=== PATIENT | male | born 1960 | race Caucasian/White ===

== ENCOUNTER → 2016-08-08 | Outpatient (CLI) | payer MEDICARE, OTHER ==
[~2016-08-08] MED LIST: /LORA10TA PO; ASPI325T5 PO; CARV25TA PO; CLOP75TA2 PO; COZAAR OR; DIGO0.259 PO; LASI40TA PO; LISI5TAB PO; MAGN500T6 PO; MULTCAP PO; NITR4TASL SL; OMEP20CA3 PO; SIMV40TA2 PO; SPIR25TA2 PO
--- NOTE | 2016-08-08 15:05 | REP ---
CHEST X-RAY: Two views. HISTORY: Coronary artery disease, cardiomyopathy, cough and fever. Comparison study August 24, 2013. FINDINGS: A unipolar pacemaker is seen in the right heart via the left side. Heart is not felt to be enlarged. The lungs are exposed at a relatively low level of inspiration. There is some linear fibrosis in the right base unchanged from the comparison study. Interstitial markings are slightly prominent diffusely at the bases. No acute infiltrate is seen. No pleural effusion noted. IMPRESSION: Prominent bibasilar interstitial markings. Linear fibrosis right base. Pacemaker in place. Signed by Kj Alejandra MD 08/08/2016 05:39 P
[2016-08-08 16:32] LABS: ANION GAP 11 MEQ/L (8-16); BLOOD UREA NITROGEN 9 MG/DL (7-18); CALCIUM LEVEL 9.5 MG/DL (8.5-10.1); CARBON DIOXIDE LEVEL 30 MEQ/L (21-32); CHLORIDE LEVEL 99 MEQ/L (98-107); GLOMERULAR FILTRATION RATE > 60.0 (>56); GLUCOSE, FASTING 157 MG/DL (70-105); POTASSIUM SERUM 4.1 MEQ/L (3.5-5.1); SODIUM LEVEL 140 MEQ/L (136-145)
[2016-08-08 16:47] LABS: MEAN CORPUSCULAR HEMOGLOBIN 30.8 pg (27.0-33.0); MEAN CORPUSCULAR HGB CONC 32.9 g/dl (32.0-36.5); MEAN CORPUSCULAR VOLUME 93.7 fl (80.0-96.0); RED CELL DISTRIBUTION WIDTH 12.4 % (11.5-14.5); WHITE BLOOD COUNT 6.9 K/mm3 (4.0-10.0)
== END ==
LOC: M SMT 10:16
PROVIDERS: ATTEND Internal Medicine Cardiovascular Disease
DX: R05 Cough (principal); R50.9 Fever, unspecified; I25.10 Atherosclerotic heart disease of native coronary artery without angina pectoris; Z95.0 Presence of cardiac pacemaker; I42.9 Cardiomyopathy, unspecified

== ENCOUNTER → 2016-10-08 | Outpatient (REF) | payer MEDICARE ==
[2016-10-08 11:46] LABS: ALBUMIN 3.9 GM/DL (3.2-5.2); ALBUMIN/GLOBULIN RATIO 1.08 (1.00-1.93); ALKALINE PHOSPHATASE 68 U/L (45-117); ALT/SGPT 34 U/L (12-78); ANION GAP 9 MEQ/L (8-16); AST/SGOT 20 U/L (15-37); BILIRUBIN,TOTAL 0.4 MG/DL (0.2-1.0); BLOOD UREA NITROGEN 15 MG/DL (7-18); CALCIUM LEVEL 9.3 MG/DL (8.5-10.1); CARBON DIOXIDE LEVEL 29 MEQ/L (21-32); CHLORIDE LEVEL 103 MEQ/L (98-107); CHOLESTEROL LEVEL 148 MG/DL (<200); CREATININE FOR GFR 1.07 MG/DL (0.70-1.30); GLOMERULAR FILTRATION RATE > 60.0 (>56); GLUCOSE, FASTING 160 MG/DL (70-105); POTASSIUM SERUM 3.9 MEQ/L (3.5-5.1); SODIUM LEVEL 141 MEQ/L (136-145); TOTAL PROTEIN 7.5 GM/DL (6.4-8.2); TRIGLYCERIDES LEVEL 258 MG/DL (<150)
== END ==
LOC: M SFHCPLAZ 08:46
PROVIDERS: ATTEND Internal Medicine
DX: R73.01 Impaired fasting glucose (principal); E78.5 Hyperlipidemia, unspecified

== ENCOUNTER → 2017-04-07 | Outpatient (REF) | payer MEDICARE ==
[2017-04-07 13:22] LABS: ALBUMIN 3.9 GM/DL (3.2-5.2); ALBUMIN/GLOBULIN RATIO 1.11 (1.00-1.93); ALKALINE PHOSPHATASE 71 U/L (45-117); ALT/SGPT 35 U/L (12-78); ANION GAP 9 MEQ/L (8-16); AST/SGOT 20 U/L (7-37); BILIRUBIN,TOTAL 0.3 MG/DL (0.2-1.0); BLOOD UREA NITROGEN 12 MG/DL (7-18); CARBON DIOXIDE LEVEL 27 MEQ/L (21-32); CHLORIDE LEVEL 103 MEQ/L (98-107); CHOLESTEROL LEVEL 148 MG/DL (<200); CREATININE FOR GFR 1.16 MG/DL (0.70-1.30); GLOMERULAR FILTRATION RATE > 60.0 (>56); GLUCOSE, FASTING 210 MG/DL (70-105); POTASSIUM SERUM 4.1 MEQ/L (3.5-5.1); SODIUM LEVEL 139 MEQ/L (136-145); TOTAL PROTEIN 7.4 GM/DL (6.4-8.2); TRIGLYCERIDES LEVEL 267 MG/DL (<150)
== END ==
LOC: M SFHCPLAZ 08:46
PROVIDERS: ATTEND Internal Medicine
DX: I25.5 Ischemic cardiomyopathy (principal); R73.01 Impaired fasting glucose; E78.5 Hyperlipidemia, unspecified

== ENCOUNTER → 2017-09-09 | Outpatient (REF) | payer MEDICARE ==
[2017-09-09 11:40] LABS: HEMATOCRIT 41.9 % (42.0-52.0); HEMOGLOBIN 13.9 g/dl (13.5-17.5); MEAN CORPUSCULAR HEMOGLOBIN 30.8 pg (27.0-33.0); MEAN CORPUSCULAR HGB CONC 33.2 g/dl (32.0-36.5); MEAN CORPUSCULAR VOLUME 92.7 fl (80.0-96.0); PLATELET COUNT, AUTOMATED 240 10^3/uL (150-450); RED BLOOD COUNT 4.52 10^6/uL (4.30-6.10); RED CELL DISTRIBUTION WIDTH 12.5 % (11.5-14.5); WHITE BLOOD COUNT 7.3 10^3/uL (4.0-10.0)
[2017-09-09 12:26] LABS: ALBUMIN 3.9 GM/DL (3.2-5.2); ALBUMIN/GLOBULIN RATIO 1.08 (1.00-1.93); ALKALINE PHOSPHATASE 50 U/L (45-117); ALT/SGPT 25 U/L (12-78); ANION GAP 10 MEQ/L (8-16); AST/SGOT 18 U/L (7-37); BILIRUBIN,TOTAL 0.4 MG/DL (0.2-1.0); BLOOD UREA NITROGEN 15 MG/DL (7-18); CALCIUM LEVEL 9.2 MG/DL (8.5-10.1); CARBON DIOXIDE LEVEL 25 MEQ/L (21-32); CHLORIDE LEVEL 105 MEQ/L (98-107); CHOLESTEROL LEVEL 148 MG/DL (<200); CHOLESTEROL RISK RATIO 4.228 (<5); CREATININE FOR GFR 1.07 MG/DL (0.70-1.30); GLOMERULAR FILTRATION RATE > 60.0 (>56); GLUCOSE, FASTING 154 MG/DL (70-100); HDL CHOLESTEROL 35 MG/DL (>40); LDL CHOLESTEROL 78.4 MG/DL (<100); NON-HDL-C 113 MG/DL; SODIUM LEVEL 140 MEQ/L (136-145); TOTAL PROTEIN 7.5 GM/DL (6.4-8.2); TRIGLYCERIDES LEVEL 173 MG/DL (<150)
[2017-09-09 13:11] LABS: ESTIMATED AVERAGE GLUCOSE 157 MG/DL (60-110); HEMOGLOBIN A1c 7.1 %
== END ==
LOC: M SFHCPLAZ 08:42
DX: G47.33 Obstructive sleep apnea (adult) (pediatric) (principal); E11.9 Type 2 diabetes mellitus without complications; E78.5 Hyperlipidemia, unspecified
CPT/HCPCS: 80053

== ENCOUNTER 2018-03-02 15:39 | Emergency (ER) | payer MEDICARE ==
[2018-03-02 17:16] LABS: BASO # 0.1 10^3/uL (0.0-0.2); BASO % 0.6 % (0.0-1.0); EOS # 0.2 10^3/uL (0.0-0.50); EOS % 2.6 % (0.0-3.0); HEMATOCRIT 41.6 % (42.0-52.0); HEMOGLOBIN 13.9 g/dl (13.5-17.5); IMMATURE GRANULOCYTE % 0.4 % (0-3.0); LYMPH # 3.4 10^3/uL (1.5-4.5); LYMPH % 37.7 % (24.0-44.0); MEAN CORPUSCULAR HEMOGLOBIN 31.2 pg (27.0-33.0); MEAN CORPUSCULAR HGB CONC 33.4 g/dl (32.0-36.5); MEAN CORPUSCULAR VOLUME 93.5 fl (80.0-96.0); NEUTROPHILS # 4.3 10^3/uL (1.8-7.7); NEUTROPHILS % 47.7 % (36.0-66.0); PLATELET COUNT, AUTOMATED 240 10^3/uL (150-450); RED BLOOD COUNT 4.45 10^6/uL (4.30-6.10); RED CELL DISTRIBUTION WIDTH 12.4 % (11.5-14.5); WHITE BLOOD COUNT 9.1 10^3/uL (4.0-10.0)
[2018-03-02 17:52] LABS: ALBUMIN 3.8 GM/DL (3.2-5.2); ALBUMIN/GLOBULIN RATIO 0.95 (1.00-1.93); ALKALINE PHOSPHATASE 44 U/L (45-117); ALT/SGPT 27 U/L (12-78); ANION GAP 8 MEQ/L (8-16); AST/SGOT 16 U/L (7-37); BILIRUBIN,DIRECT 0.1 MG/DL (0.0-0.2); BILIRUBIN,TOTAL 0.4 MG/DL (0.2-1.0); BLOOD UREA NITROGEN 11 MG/DL (7-18); CALCIUM LEVEL 8.3 MG/DL (8.5-10.1); CARBON DIOXIDE LEVEL 29 MEQ/L (21-32); CHLORIDE LEVEL 103 MEQ/L (98-107); CK-MB VALUE MASS < 1.0 NG/ML (<3.6); CPK CREATINE PHOSPHOKINASE 94 U/L (39-308); CREATININE FOR GFR 1.11 MG/DL (0.70-1.30); GLOMERULAR FILTRATION RATE > 60.0 (>56); GLUCOSE, FASTING 82 MG/DL (70-100); LIPASE 104 U/L (73-393); MB/CK RELATIVE INDEX 1.06 (< OR =4); POTASSIUM SERUM 3.6 MEQ/L (3.5-5.1); SODIUM LEVEL 140 MEQ/L (136-145); TOTAL PROTEIN 7.8 GM/DL (6.4-8.2); TROPONIN I < 0.02 NG/ML (< 0.10)
[2018-03-02] MEDS: ASPIRIN 81 MG CHEW TABLET PO (18:09)
[2018-03-02] MEDS: GI COCKTAIL 50ML BTL(HYOSCYAMINE/MAALOX/LIDOCAINE VISCOUS)(1:3:1) PO (18:09)
[2018-03-02 18:39] LABS: INR 1.08; PROTHROMBIN TIME 14.1 SECONDS (12.1-14.4)
[2018-03-02] MEDS: ONDANSETRON 4MG/2ML VIAL (J2405) IV (19:45)
[2018-03-02] MEDS: MORPHINE 4 MG/ML 1ML VIAL/SYRINGE (J2270) IV (20:00)
== END 2018-03-02 20:28 | disposition home or self-care (01) ==
LOC: M ED 15:39
DX: R07.89 Other chest pain (principal); R11.0 Nausea; E11.9 Type 2 diabetes mellitus without complications; I10 Essential (primary) hypertension; J44.9 Chronic obstructive pulmonary disease, unspecified; Z87.891 Personal history of nicotine dependence; Z88.0 Allergy status to penicillin; Z79.899 Other long term (current) drug therapy; Z79.02 Long term (current) use of antithrombotics/antiplatelets; Z79.82 Long term (current) use of aspirin
CPT/HCPCS: 71045

== ENCOUNTER → 2018-03-11 | Outpatient (REF) | payer MEDICARE ==
[2018-03-11 11:04] LABS: ALBUMIN/GLOBULIN RATIO 1.21 (1.00-1.93); ALKALINE PHOSPHATASE 48 U/L (45-117); ALT/SGPT 29 U/L (12-78); ANION GAP 9 MEQ/L (8-16); AST/SGOT 20 U/L (7-37); BILIRUBIN,TOTAL 0.4 MG/DL (0.2-1.0); BLOOD UREA NITROGEN 12 MG/DL (7-18); CALCIUM LEVEL 9.5 MG/DL (8.5-10.1); CARBON DIOXIDE LEVEL 25 MEQ/L (21-32); CHLORIDE LEVEL 107 MEQ/L (98-107); CHOLESTEROL LEVEL 127 MG/DL (<200); CHOLESTEROL RISK RATIO 3.527 (<5); CREATININE FOR GFR 1.07 MG/DL (0.70-1.30); GLOMERULAR FILTRATION RATE > 60.0 (>56); GLUCOSE, FASTING 166 MG/DL (70-100); HDL CHOLESTEROL 36 MG/DL (>40); LDL CHOLESTEROL 53 MG/DL (<100); MAGNESIUM LEVEL 2.2 MG/DL (1.8-2.4); NON-HDL-C 91 MG/DL; POTASSIUM SERUM 4.3 MEQ/L (3.5-5.1); SODIUM LEVEL 141 MEQ/L (136-145); TOTAL PROTEIN 7.3 GM/DL (6.4-8.2); TRIGLYCERIDES LEVEL 189 MG/DL (<150)
[2018-03-11 11:55] LABS: ESTIMATED AVERAGE GLUCOSE 154 MG/DL (60-110)
[2018-03-11 12:27] LABS: HEP C VIRUS AB SCREEN MEDICARE < 0.0 INDEX (<0.8)
== END ==
LOC: M SFHCPLAZ 08:13
DX: E11.9 Type 2 diabetes mellitus without complications (principal); E78.5 Hyperlipidemia, unspecified; I25.10 Atherosclerotic heart disease of native coronary artery without angina pectoris; Z11.59 Encounter for screening for other viral diseases
CPT/HCPCS: 83735

== ENCOUNTER → 2018-09-14 | Outpatient (REF) | payer MEDICARE ==
[~2018-09-14] MED LIST changes: -/LORA10TA PO; +ATOR40TA75 PO; +CORL1.7T PO; +ENTR1TAB7; +FENO160T10 PO; +GLIP5TAB8 PO; +LORA-385 PO
[2018-09-14 10:53] LABS: HEMATOCRIT 41.5 % (42.0-52.0); HEMOGLOBIN 13.7 g/dl (13.5-17.5); MEAN CORPUSCULAR HEMOGLOBIN 31.4 pg (27.0-33.0); PLATELET COUNT, AUTOMATED 222 10^3/uL (150-450); RED BLOOD COUNT 4.37 10^6/uL (4.30-6.10); WHITE BLOOD COUNT 6.9 10^3/uL (4.0-10.0)
[2018-09-14 11:25] LABS: ALBUMIN 3.7 GM/DL (3.2-5.2); ALT/SGPT 25 U/L (12-78); BILIRUBIN,TOTAL 0.3 MG/DL (0.2-1.0); BLOOD UREA NITROGEN 15 MG/DL (7-18); CALCIUM LEVEL 8.7 MG/DL (8.5-10.1); CARBON DIOXIDE LEVEL 28 MEQ/L (21-32); CHLORIDE LEVEL 106 MEQ/L (98-107); CREATININE FOR GFR 1.17 MG/DL (0.70-1.30); GLOMERULAR FILTRATION RATE > 60.0 (>56); GLUCOSE, FASTING 165 MG/DL (70-100); POTASSIUM SERUM 4.2 MEQ/L (3.5-5.1); SODIUM LEVEL 140 MEQ/L (136-145); TOTAL PROTEIN 6.8 GM/DL (6.4-8.2)
[2018-09-14 11:35] LABS: MALB URINE SIEMENS 7.4 MG/L; MAU/CREAT RATIO 3.7 MCG/MG (0.0-30.0)
[2018-09-14 12:51] LABS: HEMOGLOBIN A1c 7.7 %
== END ==
LOC: M SFHCPLAZ 08:16
PROVIDERS: ATTEND Internal Medicine
DX: Z86.010 Personal history of colon polyps (principal); E11.9 Type 2 diabetes mellitus without complications; I25.5 Ischemic cardiomyopathy

== ENCOUNTER → 2018-10-06 | Outpatient (CLI) | payer MEDICARE ==
--- NOTE | 2018-10-06 10:39 | REP ---
CT chest without contrast: History: Interstitial lung disease. Comparison chest x-ray March 02, 2018 and August 08, 2016. No comparison chest CT. CT findings: The there are mild linear pleuroparenchymal fibrotic changes involving the right middle lobe, lingula, and the left lower lobe at the bases bilaterally. There is no evidence of interstitial lung disease by CT. There is a pacemaker lead in the right heart via the left side. No pleural or pericardial effusion is appreciated. No hilar or mediastinal mass or adenopathy is seen. There is extensive left coronary artery and right coronary artery vascular calcification. There is mild to moderate diffuse fatty infiltration of the liver with areas of fat sparing near the gallbladder. No adrenal lesion is seen. A very small peripheral cyst is seen in the upper pole right kidney. No bony destructive lesion is appreciated. Impression: Pacemaker in place. No evidence of interstitial lung disease. Mild bibasilar pleuroparenchymal fibrosis is seen. No acute disease. Electronically Signed by Kj Alejandra MD 10/06/2018 05:18 P
== END ==
LOC: M RAD 08:52
PROVIDERS: ATTEND Internal Medicine
DX: R91.8 Other nonspecific abnormal finding of lung field (principal); Z95.0 Presence of cardiac pacemaker; Z87.09 Personal history of other diseases of the respiratory system

== ENCOUNTER → 2019-03-18 | Outpatient (REF) | payer MEDICARE ==
[2019-03-18 11:47] LABS: ALBUMIN 3.7 GM/DL (3.2-5.2); ALT/SGPT 24 U/L (12-78); BILIRUBIN,TOTAL 0.4 MG/DL (0.2-1.0); BLOOD UREA NITROGEN 14 MG/DL (7-18); CALCIUM LEVEL 8.9 MG/DL (8.5-10.1); CARBON DIOXIDE LEVEL 26 MEQ/L (21-32); CHLORIDE LEVEL 105 MEQ/L (98-107); CHOLESTEROL LEVEL 135 MG/DL (<200); CREATININE FOR GFR 0.99 MG/DL (0.70-1.30); GLOMERULAR FILTRATION RATE > 60.0 (>56); GLUCOSE, FASTING 154 MG/DL (70-100); HDL CHOLESTEROL 34 MG/DL (>40); LDL CHOLESTEROL 47 MG/DL (<100); MAGNESIUM LEVEL 1.9 MG/DL (1.8-2.4); NON-HDL-C 101 MG/DL; POTASSIUM SERUM 4.5 MEQ/L (3.5-5.1); SODIUM LEVEL 139 MEQ/L (136-145); TOTAL PROTEIN 7.1 GM/DL (6.4-8.2); TRIGLYCERIDES LEVEL 270 MG/DL (<150)
[2019-03-18 12:49] LABS: HEMOGLOBIN A1c 7.1 %
== END ==
LOC: M SFHCPLAZ 08:04
PROVIDERS: ATTEND Internal Medicine
DX: E11.9 Type 2 diabetes mellitus without complications (principal); E78.5 Hyperlipidemia, unspecified; I25.5 Ischemic cardiomyopathy

== ENCOUNTER → 2019-09-23 | Outpatient (REF) | payer MEDICARE ==
[2019-09-23 14:09] LABS: HEMATOCRIT 45.1 % (42.0-52.0); HEMOGLOBIN 14.5 g/dl (13.5-17.5); MEAN CORPUSCULAR HEMOGLOBIN 30.9 pg (27.0-33.0); MEAN CORPUSCULAR HGB CONC 32.2 g/dl (32.0-36.5); PLATELET COUNT, AUTOMATED 200 10^3/uL (150-450); WHITE BLOOD COUNT 6.2 10^3/uL (4.0-10.0)
[2019-09-23 14:12] LABS: ALBUMIN 3.7 GM/DL (3.2-5.2); ALT/SGPT 40 U/L (12-78); BILIRUBIN,TOTAL 0.4 MG/DL (0.2-1.0); BLOOD UREA NITROGEN 12 MG/DL (7-18); CALCIUM LEVEL 9.1 MG/DL (8.5-10.1); CARBON DIOXIDE LEVEL 27 MEQ/L (21-32); CHLORIDE LEVEL 106 MEQ/L (98-107); CHOLESTEROL LEVEL 155 MG/DL (<200); CHOLESTEROL RISK RATIO 4.696 (<5); GLOMERULAR FILTRATION RATE > 60.0 (>56); GLUCOSE, FASTING 233 MG/DL (70-100); HDL CHOLESTEROL 33 MG/DL (>40); LDL CHOLESTEROL 51 MG/DL (<100); NON-HDL-C 122 MG/DL; POTASSIUM SERUM 4.6 MEQ/L (3.5-5.1); SODIUM LEVEL 140 MEQ/L (136-145); TOTAL PROTEIN 7.3 GM/DL (6.4-8.2); TRIGLYCERIDES LEVEL 354 MG/DL (<150)
[2019-09-23 14:27] LABS: HEMOGLOBIN A1c 9.5 %
[2019-09-23 14:52] LABS: MALB URINE SIEMENS 18.8 MG/L; MAU/CREAT RATIO 6.5 MCG/MG (0.0-30.0)
== END ==
LOC: M SFHCPLAZ 10:13 → M SFHCADAM 10:14
PROVIDERS: ATTEND Internal Medicine
DX: G47.33 Obstructive sleep apnea (adult) (pediatric) (principal); I25.5 Ischemic cardiomyopathy; E11.9 Type 2 diabetes mellitus without complications; E78.5 Hyperlipidemia, unspecified; I25.10 Atherosclerotic heart disease of native coronary artery without angina pectoris

== ENCOUNTER → 2019-10-05 | Outpatient (CLI) | payer MEDICARE ==
--- NOTE | 2019-10-05 11:19 | REP ---
REASON FOR EXAM: History of asthma. COMPARISON: 10/06/2018 also without contrast. The lack of intravenous contrast decreases the sensitivity of the examination. The mediastinum and pulmonary maik are unchanged. No mass or adenopathy has developed. There is no significant change in the appearance of the imaged upper abdomen or imaged osseous structures. Diffuse low density is seen throughout the hepatic parenchyma. Evaluation of the lung bautista shows no new abnormal nodules, masses, or opacities. IMPRESSION: Stable CT examination of the chest. There is minimal bibasal subsegmental atelectatic change. There is diffuse fatty infiltration of the liver. Electronically Signed by Jayson Steel DO 10/05/2019 12:06 P
== END ==
LOC: M RAD 10:23
PROVIDERS: ATTEND Nurse Practitioner Family
DX: J45.20 Mild intermittent asthma, uncomplicated (principal); K76.0 Fatty (change of) liver, not elsewhere classified

== ENCOUNTER → 2020-03-07 | Outpatient (REF) | payer MEDICARE ==
[2020-03-07 14:05] LABS: ALBUMIN 3.6 GM/DL (3.2-5.2); ALT/SGPT 27 U/L (12-78); BILIRUBIN,TOTAL 0.4 MG/DL (0.2-1.0); BLOOD UREA NITROGEN 10 MG/DL (7-18); CALCIUM LEVEL 9.2 MG/DL (8.5-10.1); CARBON DIOXIDE LEVEL 27 MEQ/L (21-32); CHLORIDE LEVEL 106 MEQ/L (98-107); CHOLESTEROL LEVEL 149 MG/DL (<200); CREATININE FOR GFR 0.94 MG/DL (0.70-1.30); GLOMERULAR FILTRATION RATE > 60.0 (>56); GLUCOSE, FASTING 166 MG/DL (70-100); HDL CHOLESTEROL 39 MG/DL (>40); LDL CHOLESTEROL 54 MG/DL (<100); MAGNESIUM LEVEL 2.1 MG/DL (1.8-2.4); NON-HDL-C 110 MG/DL; POTASSIUM SERUM 4.6 MEQ/L (3.5-5.1); SODIUM LEVEL 140 MEQ/L (136-145); TOTAL PROTEIN 7.2 GM/DL (6.4-8.2); TRIGLYCERIDES LEVEL 282 MG/DL (<150)
[2020-03-07 14:10] LABS: HEMOGLOBIN A1c 7.1 %
== END ==
LOC: M SFHCADAM 09:14
PROVIDERS: ATTEND Internal Medicine
DX: I25.5 Ischemic cardiomyopathy (principal); E11.9 Type 2 diabetes mellitus without complications; I25.10 Atherosclerotic heart disease of native coronary artery without angina pectoris

== ENCOUNTER → 2020-09-05 | Outpatient (REF) | payer MEDICARE ==
[2020-09-05 12:33] LABS: BASO # 0.1 10^3/uL (0.0-0.2); BASO % 0.9 % (0.0-1.0); EOS # 0.2 10^3/uL (0.0-0.5); EOS % 3.4 % (0.0-3.0); HEMATOCRIT 48.6 % (42.0-52.0); HEMOGLOBIN 15.4 g/dl (13.5-17.5); LYMPH # 1.7 10^3/uL (1.5-5.0); LYMPH % 29.5 % (24.0-44.0); MEAN CORPUSCULAR HEMOGLOBIN 30.4 pg (27.0-33.0); MEAN CORPUSCULAR HGB CONC 31.7 g/dl (32.0-36.5); MONO # 0.6 10^3/uL (0.0-0.8); MONO % 10.1 % (2.0-8.0); NEUTROPHILS # 3.3 10^3/uL (1.5-8.5); NEUTROPHILS % 55.8 % (36.0-66.0); PLATELET COUNT, AUTOMATED 209 10^3/uL (150-450); RED BLOOD COUNT 5.06 10^6/uL (4.30-6.10); WHITE BLOOD COUNT 5.9 10^3/uL (4.0-10.0)
[2020-09-05 13:31] LABS: MAU/CREAT RATIO 6.3 MCG/MG (0.0-30.0)
[2020-09-05 13:48] LABS: BLOOD UREA NITROGEN 14 MG/DL (7-18); CALCIUM LEVEL 9.7 MG/DL (8.8-10.2); CARBON DIOXIDE LEVEL 23 MEQ/L (21-32); CHLORIDE LEVEL 107 MEQ/L (98-107); GLOMERULAR FILTRATION RATE > 60.0 (>49); GLUCOSE, FASTING 146 MG/DL (70-100); POTASSIUM SERUM 4.6 MEQ/L (3.5-5.1); SODIUM LEVEL 139 MEQ/L (136-145)
[2020-09-05 13:49] LABS: ALBUMIN 4.1 GM/DL (3.2-5.2); ALT/SGPT 29 U/L (12-78); BILIRUBIN,TOTAL 0.4 MG/DL (0.2-1.0); CHOLESTEROL LEVEL 137 MG/DL (<200); CHOLESTEROL RISK RATIO 3.261 (<5); HDL CHOLESTEROL 42 MG/DL (>40); LDL CHOLESTEROL 60 MG/DL (<100); NON-HDL-C 95 MG/DL; TOTAL PROTEIN 7.5 GM/DL (6.4-8.2); TRIGLYCERIDES LEVEL 175 MG/DL (<150)
[2020-09-05 14:36] LABS: HEMOGLOBIN A1c 6.6 %
== END ==
LOC: M SFHCADAM 09:20
PROVIDERS: ATTEND Internal Medicine
DX: G47.33 Obstructive sleep apnea (adult) (pediatric) (principal); I25.5 Ischemic cardiomyopathy; E11.9 Type 2 diabetes mellitus without complications; E78.5 Hyperlipidemia, unspecified

== ENCOUNTER → 2021-02-27 | Outpatient (REF) | payer MEDICARE ==
[2021-02-27 13:35] LABS: BASO # 0.1 10^3/uL (0.0-0.2); BASO % 0.7 % (0.0-1.0); EOS # 0.2 10^3/uL (0.0-0.5); EOS % 2.8 % (0.0-3.0); HEMATOCRIT 48.5 % (42.0-52.0); HEMOGLOBIN 15.5 g/dl (13.5-17.5); LYMPH # 2.2 10^3/uL (1.5-5.0); LYMPH % 29.1 % (24.0-44.0); MEAN CORPUSCULAR HEMOGLOBIN 31.1 pg (27.0-33.0); MEAN CORPUSCULAR VOLUME 97.4 fl (80.0-96.0); MONO # 0.6 10^3/uL (0.0-0.8); MONO % 8.2 % (2.0-8.0); NEUTROPHILS # 4.3 10^3/uL (1.5-8.5); NEUTROPHILS % 58.7 % (36.0-66.0); PLATELET COUNT, AUTOMATED 222 10^3/uL (150-450); RED BLOOD COUNT 4.98 10^6/uL (4.30-6.10); WHITE BLOOD COUNT 7.4 10^3/uL (4.0-10.0)
[2021-02-27 15:26] LABS: HEMOGLOBIN A1c 6.6 %
[2021-02-27 17:45] LABS: ALBUMIN 3.7 GM/DL (3.2-5.2); ALT/SGPT 27 U/L (12-78); BILIRUBIN,TOTAL 0.4 MG/DL (0.2-1.0); BLOOD UREA NITROGEN 14 MG/DL (7-18); CALCIUM LEVEL 9.2 MG/DL (8.8-10.2); CARBON DIOXIDE LEVEL 28 MEQ/L (21-32); CHLORIDE LEVEL 106 MEQ/L (98-107); CHOLESTEROL LEVEL 150 MG/DL (<200); CHOLESTEROL RISK RATIO 3.658 (<5); CREATININE FOR GFR 0.99 MG/DL (0.70-1.30); GLOMERULAR FILTRATION RATE > 60.0 (>49); GLUCOSE, FASTING 160 MG/DL (70-100); HDL CHOLESTEROL 41 MG/DL (>40); LDL CHOLESTEROL 57 MG/DL (<100); NON-HDL-C 109 MG/DL; POTASSIUM SERUM 4.7 MEQ/L (3.5-5.1); SODIUM LEVEL 140 MEQ/L (136-145); TOTAL PROTEIN 7.3 GM/DL (6.4-8.2); TRIGLYCERIDES LEVEL 261 MG/DL (<150)
== END ==
LOC: M SFHCADAM 08:53
PROVIDERS: ATTEND Internal Medicine
DX: G47.33 Obstructive sleep apnea (adult) (pediatric) (principal); E78.5 Hyperlipidemia, unspecified; E11.9 Type 2 diabetes mellitus without complications; Z12.5 Encounter for screening for malignant neoplasm of prostate
CPT/HCPCS: 80053; 80061; 83036; 85025; G0103

== ENCOUNTER → 2021-09-04 | Outpatient (REF) | payer MEDICARE ==
[2021-09-04 13:55] LABS: ALBUMIN 3.9 GM/DL (3.2-5.2); ALT/SGPT 27 U/L (12-78); BILIRUBIN,TOTAL 0.5 MG/DL (0.2-1.0); BLOOD UREA NITROGEN 14 MG/DL (7-18); CALCIUM LEVEL 9.2 MG/DL (8.8-10.2); CARBON DIOXIDE LEVEL 27 MEQ/L (21-32); CHLORIDE LEVEL 103 MEQ/L (98-107); CHOLESTEROL LEVEL 196 MG/DL (<200); CHOLESTEROL RISK RATIO 5.764 (<5); GLOMERULAR FILTRATION RATE > 60.0 (>49); GLUCOSE, FASTING 148 MG/DL (70-100); HDL CHOLESTEROL 34 MG/DL (>40); LDL CHOLESTEROL 104 MG/DL (<100); MAGNESIUM LEVEL 2.2 MG/DL (1.8-2.4); NON-HDL-C 162 MG/DL; SODIUM LEVEL 139 MEQ/L (136-145); TOTAL PROTEIN 7.9 GM/DL (6.4-8.2); TRIGLYCERIDES LEVEL 292 MG/DL (<150)
[2021-09-04 14:43] LABS: MALB URINE SIEMENS 9.3 MG/L; MAU/CREAT RATIO 6.2 MCG/MG (0.0-30.0)
[2021-09-04 17:56] LABS: HEMOGLOBIN A1c 6.2 %
== END ==
LOC: M SFHCADAM 07:42
PROVIDERS: ATTEND Internal Medicine
DX: E11.9 Type 2 diabetes mellitus without complications (principal); E78.5 Hyperlipidemia, unspecified; I25.10 Atherosclerotic heart disease of native coronary artery without angina pectoris

== ENCOUNTER → 2021-11-04 | Outpatient (CLI) | payer MEDICARE ==
[~2021-11-04] MED LIST changes: +ASPI81TA26 PO; +CLAR10CA3 PO; -ENTR1TAB7; +ENTR1TAB7 PO; +FURO20TA2 PO; +JARD1TAB3 PO; +LOSA25TA13 PO; +METF750T36 PO; +RA M500C PO; +SPIR-10 PO; +VITMTA PO
== END ==
LOC: M LABSMTC 09:47
PROVIDERS: ATTEND Anesthesiology
DX: Z01.818 Encounter for other preprocedural examination (principal); Z11.52 Encounter for screening for COVID-19

== ENCOUNTER 2021-11-08 07:43 | Day surgery (SDC) | payer MEDICARE ==
[~2021-11-08] VITALS: Ht 170.2 cm; Wt 106.0 kg
[~2021-11-08 07:43] MED LIST changes: +LIDOCAINE 2% 100MG/5ML SDV (FOR ANES.) As Ordered ONE; +NS 1,000 ML IV ONE; +propofoL 200 MG/20 ML VIAL As Ordered ONE
[2021-11-08 09:06] VITALS: BP 113/66
== END 2021-11-08 09:20 | disposition home or self-care (01) ==
LOC: M OPP 07:43
PROVIDERS: ATTEND Surgery
DX: Z12.11 Encounter for screening for malignant neoplasm of colon (principal); Z86.010 Personal history of colon polyps; K63.5 Polyp of colon; K57.30 Diverticulosis of large intestine without perforation or abscess without bleeding; Z79.82 Long term (current) use of aspirin; Z79.84 Long term (current) use of oral hypoglycemic drugs; Z79.899 Other long term (current) drug therapy; Z88.0 Allergy status to penicillin; Z86.74 Personal history of sudden cardiac arrest; Z95.810 Presence of automatic (implantable) cardiac defibrillator

== ENCOUNTER → 2022-03-11 | Outpatient (CLI) | payer MEDICARE ==
[~2022-03-11] MED LIST changes: -LIDOCAINE 2% 100MG/5ML SDV (FOR ANES.) As Ordered ONE; -NS 1,000 ML IV ONE; -propofoL 200 MG/20 ML VIAL As Ordered ONE
[2022-03-11 13:52] LABS: HEMOGLOBIN 15.7 g/dl (13.5-17.5); MEAN CORPUSCULAR HEMOGLOBIN 31.5 pg (27.0-33.0); MEAN CORPUSCULAR HGB CONC 32.7 g/dl (32.0-36.5); MEAN CORPUSCULAR VOLUME 96.2 fl (80.0-96.0); PLATELET COUNT, AUTOMATED 222 10^3/uL (150-450); RED BLOOD COUNT 4.99 10^6/uL (4.30-6.10); WHITE BLOOD COUNT 8.3 10^3/uL (4.0-10.0)
[2022-03-11 14:23] LABS: HEMOGLOBIN A1c 6.6 %
[2022-03-11 14:37] LABS: CREATININE, URINE 42.2 MG/DL; MALB URINE SIEMENS < 5.0 MG/L; MAU/CREAT RATIO 11.8 MCG/MG (0.0-30.0)
[2022-03-11 14:42] LABS: ALBUMIN 3.9 GM/DL (3.2-5.2); ALT/SGPT 27 U/L (12-78); BILIRUBIN,TOTAL 0.4 MG/DL (0.2-1.0); BLOOD UREA NITROGEN 13 MG/DL (7-18); CALCIUM LEVEL 9.2 MG/DL (8.8-10.2); CARBON DIOXIDE LEVEL 29 MEQ/L (21-32); CHLORIDE LEVEL 103 MEQ/L (98-107); CHOLESTEROL LEVEL 145 MG/DL (<200); CHOLESTEROL RISK RATIO 4.027 (<5); CREATININE FOR GFR 0.95 MG/DL (0.70-1.30); GLOMERULAR FILTRATION RATE > 60.0 (>49); GLUCOSE, FASTING 120 MG/DL (70-100); HDL CHOLESTEROL 36 MG/DL (>40); LDL CHOLESTEROL 47 MG/DL (<100); NON-HDL-C 109 MG/DL; POTASSIUM SERUM 4.5 MEQ/L (3.5-5.1); SODIUM LEVEL 137 MEQ/L (136-145); TOTAL PROTEIN 7.9 GM/DL (6.4-8.2); TRIGLYCERIDES LEVEL 311 MG/DL (<150)
[2022-03-11 15:03] LABS: TOTAL 25(OH) VITAMIN D 26.8 NG/ML (30.0-100.0); VITAMIN B12 LEVEL > 2000 PG/ML (247-911)
== END ==
LOC: M PLALAB 11:31
PROVIDERS: ATTEND Internal Medicine Hematology
DX: E11.9 Type 2 diabetes mellitus without complications (principal); I25.10 Atherosclerotic heart disease of native coronary artery without angina pectoris
CPT/HCPCS: 36415; 80053; 80061; 82043; 82306; 82607; 83036; 84439; 84443; 85027; 86140; G0103

== ENCOUNTER → 2022-08-07 | Outpatient (CLI) | payer MEDICARE ==
[2022-08-07 13:11] LABS: HEMOGLOBIN 15.4 g/dl (13.5-17.5); MEAN CORPUSCULAR HEMOGLOBIN 31.4 pg (27.0-33.0); MEAN CORPUSCULAR HGB CONC 32.1 g/dl (32.0-36.5); MEAN CORPUSCULAR VOLUME 97.8 fl (80.0-96.0); PLATELET COUNT, AUTOMATED 173 10^3/uL (150-450); RED BLOOD COUNT 4.91 10^6/uL (4.30-6.10); WHITE BLOOD COUNT 7.1 10^3/uL (4.0-10.0)
[2022-08-07 13:12] LABS: ALBUMIN 3.8 G/DL (3.2-5.2); ALKALINE PHOSPHATASE 60 U/L (46-116); ALT/SGPT 24 U/L (7.0-40); AST/SGOT 19 U/L (<34); BILIRUBIN,TOTAL 0.3 MG/DL (0.3-1.2); BLOOD UREA NITROGEN 14 MG/DL (9-23); CALCIUM LEVEL 9.2 MG/DL (8.3-10.6); CARBON DIOXIDE LEVEL 29 MMOL/L (20-31); CHLORIDE LEVEL 106 MMOL/L (98-107); CHOLESTEROL LEVEL 137 MG/DL (<200); GLOMERULAR FILTRATION RATE > 60.0 (>49); GLUCOSE, FASTING 159 MG/DL (74-106); LDL CHOLESTEROL 52.4 MG/DL (<100); POTASSIUM SERUM 4.8 MMOL/L (3.5-5.1); SODIUM LEVEL 140 MMOL/L (136-145); TRIGLYCERIDES LEVEL 238 MG/DL (<150)
== END ==
LOC: M LABDRWAD 08:49
PROVIDERS: ATTEND Nurse Practitioner Family
DX: I25.10 Atherosclerotic heart disease of native coronary artery without angina pectoris (principal); I50.22 Chronic systolic (congestive) heart failure; E78.2 Mixed hyperlipidemia

== ENCOUNTER → 2023-03-17 | Outpatient (CLI) | payer MEDICARE ==
[~2023-03-17] MED LIST changes: +GLIP5TAB17 PO; -GLIP5TAB8 PO
[2023-03-17 13:49] LABS: BASO # 0.1 10^3/uL (0.0-0.2); BASO % 0.6 % (0.0-1.0); EOS # 0.3 10^3/uL (0.0-0.5); HEMATOCRIT 48.6 % (42.0-52.0); HEMOGLOBIN 16.1 g/dl (13.5-17.5); LYMPH # 2.3 10^3/uL (1.5-5.0); LYMPH % 26.1 % (24.0-44.0); MEAN CORPUSCULAR HEMOGLOBIN 31.2 pg (27.0-33.0); MEAN CORPUSCULAR HGB CONC 33.1 g/dl (32.0-36.5); MEAN CORPUSCULAR VOLUME 94.2 fl (80.0-96.0); MONO # 0.9 10^3/uL (0.0-0.8); MONO % 10.7 % (2.0-8.0); NEUTROPHILS # 5.1 10^3/uL (1.5-8.5); NEUTROPHILS % 58.9 % (36.0-66.0); RED BLOOD COUNT 5.16 10^6/uL (4.30-6.10); WHITE BLOOD COUNT 8.7 10^3/uL (4.0-10.0)
[2023-03-17 14:20] LABS: PLATELET COUNT, AUTOMATED 65 10^3/uL (150-450)
[2023-03-18 01:52] LABS: ALBUMIN 3.9 G/DL (3.2-5.2); ALKALINE PHOSPHATASE 63 U/L (46-116); ALT/SGPT 23 U/L (7.0-40); AST/SGOT 20 U/L (<34); BILIRUBIN,TOTAL 0.4 MG/DL (0.3-1.2); BLOOD UREA NITROGEN 17 MG/DL (9-23); CALCIUM LEVEL 9.5 MG/DL (8.3-10.6); CARBON DIOXIDE LEVEL 28 MMOL/L (20-31); CHLORIDE LEVEL 100 MMOL/L (98-107); GLOMERULAR FILTRATION RATE > 60.0 (>49); GLUCOSE, FASTING 175 MG/DL (74-106); POTASSIUM SERUM 4.1 MMOL/L (3.5-5.1); SODIUM LEVEL 136 MMOL/L (136-145); TOTAL PROTEIN 7.4 G/DL (5.7-8.2)
== END ==
LOC: M PLALAB 11:12
PROVIDERS: ATTEND Internal Medicine Hematology
DX: D69.6 Thrombocytopenia, unspecified (principal); E11.9 Type 2 diabetes mellitus without complications; Z12.5 Encounter for screening for malignant neoplasm of prostate

== ENCOUNTER → 2023-03-24 | Outpatient (REF) | payer MEDICARE ==
[2023-03-24 13:47] LABS: ALBUMIN 3.7 G/DL (3.2-5.2); ALKALINE PHOSPHATASE 53 U/L (46-116); ALT/SGPT 19 U/L (7.0-40); AST/SGOT 19 U/L (<34); BILIRUBIN,TOTAL 0.4 MG/DL (0.3-1.2); BLOOD UREA NITROGEN 15 MG/DL (9-23); CARBON DIOXIDE LEVEL 26 MMOL/L (20-31); CHLORIDE LEVEL 101 MMOL/L (98-107); CREATININE FOR GFR 0.75 MG/DL (0.70-1.30); GLOMERULAR FILTRATION RATE > 60.0 (>49); GLUCOSE, FASTING 172 MG/DL (74-106); POTASSIUM SERUM 4.3 MMOL/L (3.5-5.1); SODIUM LEVEL 138 MMOL/L (136-145); TOTAL PROTEIN 6.8 G/DL (5.7-8.2)
[2023-03-24 13:56] LABS: BASO % 0.4 % (0.0-1.0); EOS # 0.2 10^3/uL (0.0-0.5); EOS % 2.6 % (0.0-3.0); HEMOGLOBIN 14.7 g/dl (13.5-17.5); LYMPH % 26.5 % (24.0-44.0); MEAN CORPUSCULAR HEMOGLOBIN 31.8 pg (27.0-33.0); MEAN CORPUSCULAR HGB CONC 32.7 g/dl (32.0-36.5); MEAN CORPUSCULAR VOLUME 97.4 fl (80.0-96.0); MONO # 0.7 10^3/uL (0.0-0.8); MONO % 8.6 % (2.0-8.0); NEUTROPHILS # 4.7 10^3/uL (1.5-8.5); NEUTROPHILS % 61.1 % (36.0-66.0); RED BLOOD COUNT 4.62 10^6/uL (4.30-6.10); WHITE BLOOD COUNT 7.7 10^3/uL (4.0-10.0)
[2023-03-24 14:01] LABS: PLATELET COUNT, AUTOMATED 51 10^3/uL (150-450)
[2023-03-24 14:22] LABS: HEMOGLOBIN A1c 6.8 % (4.0-6.0)
== END ==
LOC: M LABDRWAD 13:09
PROVIDERS: ATTEND Internal Medicine Hematology
DX: D69.6 Thrombocytopenia, unspecified (principal); Z12.5 Encounter for screening for malignant neoplasm of prostate; Z79.82 Long term (current) use of aspirin; Z79.84 Long term (current) use of oral hypoglycemic drugs
CPT/HCPCS: 36415; 80053; 83036; 85025; 85049; 85055; G0103

== ENCOUNTER → 2023-04-29 | Outpatient (REF) | payer MEDICARE ==
[2023-04-29 15:06] LABS: BASO # 0.1 10^3/uL (0.0-0.2); BASO % 0.8 % (0.0-1.0); EOS # 0.2 10^3/uL (0.0-0.5); EOS % 2.6 % (0.0-3.0); HEMATOCRIT 47.5 % (42.0-52.0); HEMOGLOBIN 15.7 g/dl (13.5-17.5); LYMPH # 2.5 10^3/uL (1.5-5.0); MEAN CORPUSCULAR HEMOGLOBIN 31.2 pg (27.0-33.0); MEAN CORPUSCULAR HGB CONC 33.1 g/dl (32.0-36.5); MEAN CORPUSCULAR VOLUME 94.4 fl (80.0-96.0); MONO # 0.8 10^3/uL (0.0-0.8); MONO % 8.4 % (2.0-8.0); NEUTROPHILS # 5.4 10^3/uL (1.5-8.5); NEUTROPHILS % 59.4 % (36.0-66.0); PLATELET COUNT, AUTOMATED 38 10^3/uL (150-450); RED BLOOD COUNT 5.03 10^6/uL (4.30-6.10)
== END ==
LOC: M LABDRWAD 12:34
PROVIDERS: ATTEND Internal Medicine Hematology
DX: D69.3 Immune thrombocytopenic purpura (principal)

== ENCOUNTER → 2023-05-12 | Outpatient (REF) | payer MEDICARE ==
[2023-05-12 15:15] LABS: HEMATOCRIT 45.6 % (42.0-52.0); HEMOGLOBIN 15.4 g/dl (13.5-17.5); MEAN CORPUSCULAR HGB CONC 33.8 g/dl (32.0-36.5); MEAN CORPUSCULAR VOLUME 91.9 fl (80.0-96.0); PLATELET COUNT, AUTOMATED 141 10^3/uL (150-450); RED BLOOD COUNT 4.96 10^6/uL (4.30-6.10); WHITE BLOOD COUNT 15.4 10^3/uL (4.0-10.0)
[2023-05-12 15:19] LABS: C REACTIVE PROTEIN QUANTITATIV < 0.40 MG/DL (<1.0)
[2023-05-12 15:23] LABS: ALBUMIN 3.4 G/DL (3.2-5.2); ALKALINE PHOSPHATASE 77 U/L (46-116); ALT/SGPT 34 U/L (7.0-40); AST/SGOT 17 U/L (<34); BILIRUBIN,TOTAL 0.5 MG/DL (0.3-1.2); BLOOD UREA NITROGEN 27 MG/DL (9-23); CALCIUM LEVEL 8.9 MG/DL (8.3-10.6); CARBON DIOXIDE LEVEL 24 MMOL/L (20-31); CHLORIDE LEVEL 101 MMOL/L (98-107); CHOLESTEROL LEVEL 168 MG/DL (<200); CHOLESTEROL RISK RATIO 3.87 (<5); CREATININE FOR GFR 0.74 MG/DL (0.70-1.30); GLOMERULAR FILTRATION RATE > 60.0 (>49); GLUCOSE, FASTING 249 MG/DL (74-106); HDL CHOLESTEROL 43.4 MG/DL (>40); LDL CHOLESTEROL 51.6 MG/DL (<100); NON-HDL-C 124.6 MG/DL; POTASSIUM SERUM 4.2 MMOL/L (3.5-5.1); SODIUM LEVEL 135 MMOL/L (136-145); TOTAL PROTEIN 6.4 G/DL (5.7-8.2); TRIGLYCERIDES LEVEL 365 MG/DL (<150)
[2023-05-12 15:25] LABS: FREE T4 0.94 NG/DL (0.89-1.76); THYROID STIMULATING HORMONE 1.189 uIU/ML (0.55-4.78); TOTAL 25(OH) VITAMIN D 23.5 NG/ML (20.0-100.0)
[2023-05-12 15:26] LABS: VITAMIN B12 LEVEL 818 PG/ML (211-911)
[2023-05-12 15:34] LABS: HEMOGLOBIN A1c 7.6 % (4.0-6.0)
[2023-05-12 15:46] LABS: CREATININE, URINE 69.1 MG/DL; MAU/CREAT RATIO 14.4 MCG/MG (0.0-30.0)
== END ==
LOC: M SFHCPLAZ 08:13
PROVIDERS: ATTEND Internal Medicine Hematology
DX: I25.10 Atherosclerotic heart disease of native coronary artery without angina pectoris (principal); Z79.899 Other long term (current) drug therapy

== ENCOUNTER → 2023-05-28 | Outpatient (REF) | payer MEDICARE ==
[2023-05-28 13:32] LABS: BASO # 0.1 10^3/uL (0.0-0.2); BASO % 0.8 % (0.0-1.0); EOS # 0.2 10^3/uL (0.0-0.5); EOS % 2.5 % (0.0-3.0); HEMATOCRIT 48.1 % (42.0-52.0); HEMOGLOBIN 15.3 g/dl (13.5-17.5); LYMPH % 24.8 % (24.0-44.0); MEAN CORPUSCULAR HEMOGLOBIN 30.3 pg (27.0-33.0); MEAN CORPUSCULAR HGB CONC 31.8 g/dl (32.0-36.5); MEAN CORPUSCULAR VOLUME 95.2 fl (80.0-96.0); MONO # 0.7 10^3/uL (0.0-0.8); MONO % 8.1 % (2.0-8.0); PLATELET COUNT, AUTOMATED 114 10^3/uL (150-450); RED BLOOD COUNT 5.05 10^6/uL (4.30-6.10)
[2023-05-29 13:08] LABS: EBV AB TO NUCLEAR ANTIGEN <18.0 U/mL (0.0-17.9); EBV VIRAL CAPSID AG IgM <36.0 U/mL (0.0-35.9)
== END ==
LOC: M LABDRWAD 12:25
PROVIDERS: ATTEND Internal Medicine Hematology
DX: R59.0 Localized enlarged lymph nodes (principal)

== ENCOUNTER → 2023-06-03 | Outpatient (CLI) | payer MEDICARE ==
[2023-06-03 10:12] LABS: BASO % 0.7 % (0.0-1.0); EOS # 0.3 10^3/uL (0.0-0.5); EOS % 4.4 % (0.0-3.0); HEMATOCRIT 45.2 % (42.0-52.0); HEMOGLOBIN 14.5 g/dl (13.5-17.5); LYMPH # 1.5 10^3/uL (1.5-5.0); LYMPH % 24.4 % (24.0-44.0); MEAN CORPUSCULAR HEMOGLOBIN 30.6 pg (27.0-33.0); MEAN CORPUSCULAR HGB CONC 32.1 g/dl (32.0-36.5); MEAN CORPUSCULAR VOLUME 95.4 fl (80.0-96.0); MONO # 0.6 10^3/uL (0.0-0.8); MONO % 10.8 % (2.0-8.0); NEUTROPHILS # 3.4 10^3/uL (1.5-8.5); NEUTROPHILS % 56.8 % (36.0-66.0); PLATELET COUNT, AUTOMATED 104 10^3/uL (150-450); RED BLOOD COUNT 4.74 10^6/uL (4.30-6.10); WHITE BLOOD COUNT 5.9 10^3/uL (4.0-10.0)
== END ==
LOC: M PLALAB 08:29
PROVIDERS: ATTEND Internal Medicine Hematology
DX: D69.6 Thrombocytopenia, unspecified (principal)

== ENCOUNTER → 2023-06-18 | Outpatient (REF) | payer MEDICARE ==
[2023-06-18 14:42] LABS: BASO # 0.1 10^3/uL (0.0-0.2); BASO % 0.9 % (0.0-1.0); EOS # 0.2 10^3/uL (0.0-0.5); EOS % 2.1 % (0.0-3.0); HEMATOCRIT 45.6 % (42.0-52.0); LYMPH # 2.1 10^3/uL (1.5-5.0); LYMPH % 23.7 % (24.0-44.0); MEAN CORPUSCULAR HEMOGLOBIN 31.1 pg (27.0-33.0); MEAN CORPUSCULAR HGB CONC 32.9 g/dl (32.0-36.5); MEAN CORPUSCULAR VOLUME 94.6 fl (80.0-96.0); MONO # 0.8 10^3/uL (0.0-0.8); MONO % 9.5 % (2.0-8.0); NEUTROPHILS # 5.4 10^3/uL (1.5-8.5); NEUTROPHILS % 62.6 % (36.0-66.0); RED BLOOD COUNT 4.82 10^6/uL (4.30-6.10); WHITE BLOOD COUNT 8.7 10^3/uL (4.0-10.0)
[2023-06-18 15:12] LABS: PLATELET COUNT, AUTOMATED 76 10^3/uL (150-450)
== END ==
LOC: M SFHCADAM 07:54
PROVIDERS: ATTEND Internal Medicine Hematology
DX: D69.6 Thrombocytopenia, unspecified (principal)

== ENCOUNTER → 2023-06-25 | Outpatient (CLI) | payer MEDICARE ==
[~2023-06-25] MED LIST changes: +ISOVUE-370 76% 100ML VIAL ONE
== END ==
LOC: M PLAIMG 08:33
PROVIDERS: ATTEND Internal Medicine Hematology
DX: R59.0 Localized enlarged lymph nodes (principal); D41.01 Neoplasm of uncertain behavior of right kidney
CPT/HCPCS: 70491; 71250; 74176; Q9967

== ENCOUNTER → 2023-07-01 | Outpatient (CLI) | payer MEDICARE ==
[~2023-07-01] MED LIST changes: -ISOVUE-370 76% 100ML VIAL ONE
[2023-07-01 15:10] LABS: BASO # 0.1 10^3/uL (0.0-0.2); BASO % 0.8 % (0.0-1.0); EOS % 0.1 % (0.0-3.0); HEMATOCRIT 46.2 % (42.0-52.0); HEMOGLOBIN 15.2 g/dl (13.5-17.5); LYMPH # 1.2 10^3/uL (1.5-5.0); LYMPH % 8.3 % (24.0-44.0); MEAN CORPUSCULAR HGB CONC 32.9 g/dl (32.0-36.5); MEAN CORPUSCULAR VOLUME 94.3 fl (80.0-96.0); MONO # 1.3 10^3/uL (0.0-0.8); MONO % 8.6 % (2.0-8.0); NEUTROPHILS # 11.2 10^3/uL (1.5-8.5); NEUTROPHILS % 76.4 % (36.0-66.0); PLATELET COUNT, AUTOMATED 148 10^3/uL (150-450); WHITE BLOOD COUNT 14.6 10^3/uL (4.0-10.0)
== END ==
LOC: M PLALAB 08:52
PROVIDERS: ATTEND Internal Medicine Hematology
DX: D69.6 Thrombocytopenia, unspecified (principal)

== ENCOUNTER → 2023-07-04 | Outpatient (REF) | payer MEDICARE | LOC: M LAB REF 18:00 | PROVIDERS: ATTEND Otolaryngology | DX: R59.0 Localized enlarged lymph nodes (principal) ==

== ENCOUNTER → 2023-07-15 | Outpatient (CLI) | payer MEDICARE ==
[~2023-07-15] MED LIST changes: +ATOR40TA75; +CLOP75TA99 PO; +DEXA4TA; +DEXA5TA PO; +ECOT81TA5 PO; +FLUO1SOL TOP; +FLUO5OI TOP; +GLIP5TAB17; +LASI40TA9 PO; +LOSA100T46; +LOSA100T46 PO; +MAGN250T9 PO; +THERTAB52 PO
== END ==
LOC: M ONCR 11:15
PROVIDERS: ATTEND General Practice
DX: C01 Malignant neoplasm of base of tongue (principal); C77.0 Secondary and unspecified malignant neoplasm of lymph nodes of head, face and neck; Z71.2 Person consulting for explanation of examination or test findings; Z79.02 Long term (current) use of antithrombotics/antiplatelets; Z79.82 Long term (current) use of aspirin; Z79.84 Long term (current) use of oral hypoglycemic drugs; Z79.899 Other long term (current) drug therapy; Z88.0 Allergy status to penicillin; Z87.891 Personal history of nicotine dependence; Z88.8 Allergy status to other drugs, medicaments and biological substances

== ENCOUNTER → 2023-07-18 | Outpatient (CLI) | payer MEDICARE | LOC: M RAD 12:29 | PROVIDERS: ATTEND Internal Medicine Hematology & Oncology | DX: D41.01 Neoplasm of uncertain behavior of right kidney (principal) ==

== ENCOUNTER 2023-08-01 10:15 | Outpatient (RCR) | payer MEDICARE ==
[2023-08-11] MEDS ORDERED: ONDA8TAB8 PO (10:57)
[2023-08-11] MEDS ORDERED: OLAN1TAB16 PO (10:58)
== END 2023-08-24 ==
LOC: M ONCR 10:15
PROVIDERS: ATTEND General Practice
DX: Z51.0 Encounter for antineoplastic radiation therapy (principal); C01 Malignant neoplasm of base of tongue

== ENCOUNTER → 2023-08-04 | Outpatient (CLI) | payer MEDICARE | LOC: M PLARAD 12:32 | PROVIDERS: ATTEND Physician Assistant Medical | DX: C77.0 Secondary and unspecified malignant neoplasm of lymph nodes of head, face and neck (principal) | CPT/HCPCS: 78815; A9552 ==

== ENCOUNTER → 2023-08-19 | Outpatient (CLI) | payer MEDICARE ==
[~2023-08-19] VITALS: Ht 170.2 cm; Wt 107.7 kg
[~2023-08-19] MED LIST changes: +LIDOCAINE W/EPINEPHRINE 1% 20ML VIAL As Ordered ONE; +MIDAZOLAM INJ 2MG/2ML VIAL As Ordered ONE; +OLAN1TAB16 PO; +ONDA8TAB8 PO; +VANCOMYCIN 1000MG/20ML VIAL As Ordered ONE; +fentaNYL 100 MCG/2 ML INJECTION As Ordered ONE
[2023-08-19 08:45] VITALS: TEMP 97.7
[2023-08-19] MEDS: VANCOMYCIN HCL 1,000 MG, VIAL MATE ADAPTER 1 EACH in D5W 250 ML IV ONE (09:50)
[2023-08-19] MEDS: NS 1,000 ML IV SCH (09:50)
[2023-08-19 12:00] VITALS: BP 124/79; O2SAT 93
== END ==
LOC: M IRPRO 08:29
PROVIDERS: ATTEND Internal Medicine Hematology & Oncology
DX: C02.9 Malignant neoplasm of tongue, unspecified (principal)
CPT/HCPCS: 36561; 99152; 99153; J2250; J3010; J3370

== ENCOUNTER 2023-08-21 11:12 | Outpatient (RCR) | payer MEDICARE ==
[~2023-08-21 11:12] MED LIST changes: -LIDOCAINE W/EPINEPHRINE 1% 20ML VIAL As Ordered ONE; -MIDAZOLAM INJ 2MG/2ML VIAL As Ordered ONE; -VANCOMYCIN 1000MG/20ML VIAL As Ordered ONE; -fentaNYL 100 MCG/2 ML INJECTION As Ordered ONE
== END 2023-08-24 ==
LOC: M ST 11:12
PROVIDERS: ATTEND Otolaryngology
DX: C10.9 Malignant neoplasm of oropharynx, unspecified (principal); R13.12 Dysphagia, oropharyngeal phase

== ENCOUNTER → 2023-09-12 | Outpatient (REF) | payer MEDICARE ==
[2023-09-12 13:36] LABS: ALBUMIN 2.9 G/DL (3.2-5.2); ALKALINE PHOSPHATASE 70 U/L (46-116); ALT/SGPT 21 U/L (7.0-40); AST/SGOT 16 U/L (<34); BILIRUBIN,TOTAL 0.3 MG/DL (0.3-1.2); BLOOD UREA NITROGEN 18 MG/DL (9-23); CARBON DIOXIDE LEVEL 28 MMOL/L (20-31); CHLORIDE LEVEL 105 MMOL/L (98-107); CHOLESTEROL LEVEL 125 MG/DL (<200); CHOLESTEROL RISK RATIO 3.12 (<5); CREATININE FOR GFR 0.74 MG/DL (0.70-1.30); GLOMERULAR FILTRATION RATE > 60.0 (>49); GLUCOSE, FASTING 147 MG/DL (74-106); LDL CHOLESTEROL 54.4 MG/DL (<100); POTASSIUM SERUM 4.3 MMOL/L (3.5-5.1); SODIUM LEVEL 139 MMOL/L (136-145); TRIGLYCERIDES LEVEL 153 MG/DL (<150)
[2023-09-12 13:41] LABS: HEMATOCRIT 42.2 % (42.0-52.0); HEMOGLOBIN 13.5 g/dl (13.5-17.5); MEAN CORPUSCULAR HEMOGLOBIN 31.3 pg (27.0-33.0); MEAN CORPUSCULAR VOLUME 97.7 fl (80.0-96.0); PLATELET COUNT, AUTOMATED 110 10^3/uL (150-450); RED BLOOD COUNT 4.32 10^6/uL (4.30-6.10)
[2023-09-12 14:54] LABS: HEMOGLOBIN A1c 7.3 % (4.0-6.0)
== END ==
LOC: M SFHCADAM 08:15
PROVIDERS: ATTEND Family Medicine
DX: C02.9 Malignant neoplasm of tongue, unspecified (principal); C77.9 Secondary and unspecified malignant neoplasm of lymph node, unspecified; I25.10 Atherosclerotic heart disease of native coronary artery without angina pectoris; E11.9 Type 2 diabetes mellitus without complications

== ENCOUNTER → 2023-09-23 | Outpatient (RCR) | payer MEDICARE ==
[~2023-09-23] MED LIST changes: +MAGICMW SS
== END ==
LOC: M ONCR 08-27 08:52
PROVIDERS: ATTEND General Practice
DX: Z51.0 Encounter for antineoplastic radiation therapy (principal); C01 Malignant neoplasm of base of tongue

== ENCOUNTER 2023-10-15 09:48 | Outpatient (RCR) | payer MEDICARE ==
[~2023-10-15 09:48] MED LIST changes: +ONDA-284 PO; -ONDA8TAB8 PO
[2023-10-24] MEDS ORDERED: NITR4TASL SL (04:15)
[2023-10-24] MEDS ORDERED: JARD1TAB3 PO (04:15)
[2023-10-24] MEDS ORDERED: METF750T36 PO (04:15)
[2023-10-24] MEDS ORDERED: SPIR-10 PO (04:15)
[2023-10-24] MEDS ORDERED: ATOR40TA75 PO (04:15)
[2023-10-24] MEDS ORDERED: ASPI-615 PO (04:15)
[2023-10-24] MEDS ORDERED: LUTE2000 PO (04:15)
[2023-10-24] MEDS ORDERED: CLOP75TA99 PO (04:15)
[2023-10-24] MEDS ORDERED: LOSA100T46 PO (04:15)
[2023-10-24] MEDS ORDERED: MULT-40 PO (04:15)
[2023-10-24] MEDS ORDERED: LORA-622 PO (04:15)
[2023-10-28] MEDS ORDERED: ELIQ5TAB PO (09:24)
== END 2023-10-24 ==
LOC: M ONCR 09:48
PROVIDERS: ATTEND General Practice
DX: Z51.0 Encounter for antineoplastic radiation therapy (principal); C01 Malignant neoplasm of base of tongue

== ENCOUNTER 2023-10-23 23:20 | Inpatient (IN) | payer MEDICARE ==
[~2023-10-23] VITALS: Ht 170.2 cm; Wt 90.7 kg
[~2023-10-23 23:20] MED LIST changes: -ONDA-284 PO; +ONDA8TAB8 PO
[2023-10-23] MEDS ORDERED: METOPROLOL 5 MG/5 ML VIAL As Ordered ONE (23:27)
[2023-10-23] MEDS: METOPROLOL 5 MG/5 ML VIAL IV PRN (23:29)
[2023-10-23] MEDS: NS 1,000 ML IV ONE (23:30)
[2023-10-23] MEDS: METOPROLOL TART 25 MG TABLET PO ONE (23:52)
[2023-10-24] VITALS (7 sets, daily range): BP systolic 99–105; BP diastolic 58–69; TEMP 96.7–97.8; O2SAT 93–99
[2023-10-24 00:30] LABS: BASO % 0.6 % (0.0-1.0); EOS % 0.2 % (0.0-3.0); HEMATOCRIT 40.2 % (42.0-52.0); HEMOGLOBIN 13.6 g/dl (13.5-17.5); LYMPH # 0.4 10^3/uL (1.5-5.0); LYMPH % 9.1 % (24.0-44.0); MEAN CORPUSCULAR HEMOGLOBIN 30.8 pg (27.0-33.0); MEAN CORPUSCULAR HGB CONC 33.8 g/dl (32.0-36.5); MONO % 20.8 % (2.0-8.0); NEUTROPHILS # 3.1 10^3/uL (1.5-8.5); NEUTROPHILS % 65.1 % (36.0-66.0); PLATELET COUNT, AUTOMATED 107 10^3/uL (150-450); RED BLOOD COUNT 4.42 10^6/uL (4.30-6.10); WHITE BLOOD COUNT 4.8 10^3/uL (4.0-10.0)
[2023-10-24 00:37] LABS: CALCIUM LEVEL 8.7 MG/DL (8.3-10.6); CK-MB VALUE MASS 5.3 NG/ML (<3.6); CREATININE FOR GFR 1.37 MG/DL (0.70-1.30); GLOMERULAR FILTRATION RATE 55.9 (>49); MAGNESIUM LEVEL 1.2 MG/DL (1.8-2.4); POTASSIUM SERUM 3.2 MMOL/L (3.5-5.1)
[2023-10-24 00:39] LABS: FREE T4 1.08 NG/DL (0.89-1.76); THYROID STIMULATING HORMONE 5.86 uIU/ML (0.55-4.78)
[2023-10-24 00:47] LABS: MB/CK RELATIVE INDEX 6.54 (< OR =4)
[2023-10-24] MEDS: MAG SULF 1GM/100ML (MAG RUN) 1 GM in IV 1 EA IV ONE ×4 (01:14→15:44)
[2023-10-24] MEDS: POTASSIUM CHLORIDE 10% LIQ 20MEQ/15ML UDC PO ONE (01:23)
[2023-10-24 01:59] LABS: CK-MB VALUE MASS 12.5 NG/ML (<3.6)
[2023-10-24] MEDS: KCL 10MEQ/100ML SWI (KRUN) 10 MEQ in IV 1 EA IV ONE (01:59)
[2023-10-24] MEDS ORDERED: POTASSIUM CHLORIDE 10MEQ SR TABLET PO ONE (02:00)
[2023-10-24 02:27] LABS: MB/CK RELATIVE INDEX 6.61 (< OR =4)
[2023-10-24] MEDS: AMIODARONE 200 MG TAB (PACERONE) PO ONE (03:23)
[2023-10-24] MEDS ORDERED: ACETAMINOPHEN TAB 650MG DOSE (2X325MG) PO PRN (03:45)
[2023-10-24] MEDS ORDERED: DEXTROSE 50% 50ML SYRINGE IV PRN (03:55)
[2023-10-24] MEDS ORDERED: GLUCOSE 4 GM CHEW PO PRN (03:55)
[2023-10-24] MEDS ORDERED: GLUCAGON INJ 1MG VIAL SC PRN (03:55)
[2023-10-24] MEDS ORDERED: MORPHINE 2 MG/ML 1ML VIAL IV PRN (04:00)
[2023-10-24] MEDS ORDERED: ONDANSETRON 4MG 2ML VIAL IV PRN (04:10)
[2023-10-24] MEDS ORDERED: LUTE2000 PO (04:15)
[2023-10-24] MEDS ORDERED: NITR4TASL SL (04:15)
[2023-10-24] MEDS ORDERED: MULT-40 PO (04:15)
[2023-10-24] MEDS ORDERED: LORA-622 PO (04:15)
[2023-10-24] MEDS ORDERED: ASPI-615 PO (04:15)
[2023-10-24] MEDS ORDERED: METF750T36 PO (04:15)
[2023-10-24] MEDS: KCL 40MEQ in NS 1000ML 1,000 ML IV SCH (04:20)
[2023-10-24] MEDS ORDERED: HOME MED LIST COMPLETE! XX SCH (04:20)
[2023-10-24 08:09] LABS: CK-MB VALUE MASS 11.4 NG/ML (<3.6)
[2023-10-24 08:09] LABS: BLOOD UREA NITROGEN 22 MG/DL (9-23); CALCIUM LEVEL 7.7 MG/DL (8.3-10.6); CARBON DIOXIDE LEVEL 25 MMOL/L (20-31); CHLORIDE LEVEL 102 MMOL/L (98-107); CREATININE FOR GFR 1.11 MG/DL (0.70-1.30); GLOMERULAR FILTRATION RATE > 60.0 (>49); GLUCOSE, FASTING 181 MG/DL (74-106); MAGNESIUM LEVEL 1.9 MG/DL (1.8-2.4); SODIUM LEVEL 137 MMOL/L (136-145)
[2023-10-24 08:10] LABS: PHOSPHORUS LEVEL 3.3 MG/DL (2.4-5.1)
[2023-10-24 08:19] LABS: MB/CK RELATIVE INDEX 0.91 (< OR =4)
[2023-10-24] MEDS: ASPIRIN 81MG ENTERIC TABLET PO SCH (08:40)
[2023-10-24] MEDS: AMIODARONE 200 MG TAB (PACERONE) PO SCH (08:40)
[2023-10-24] MEDS: LORATADINE 10 MG TAB PO SCH (08:40)
[2023-10-24] MEDS: CLOPIDOGREL 75 MG TAB PO SCH (08:40)
[2023-10-24] MEDS: ATORVASTATIN 20 MG TAB PO SCH (08:40)
[2023-10-24] MEDS: CARVedilol 12.5 MG TAB PO SCH (08:41)
[2023-10-24] MEDS: CHLORHEXIDINE GLUCONATE 0.12 % 15ML UDC (PERIDEX ORAL RINSE) MT SCH (08:42)
[2023-10-24] MEDS: ENOXAPARIN 40MG/0.4ML SYRINGE (J1650 PER 10MG) SC SCH (08:42)
[2023-10-24] MEDS: INSULIN LISPRO (NovoLOG) PER UNIT SC SCH ×2 (08:43→19:57)
[2023-10-24] MEDS: POTASSIUM CHLORIDE 10MEQ SR TABLET PO ONE ×2 (09:08→15:44)
[2023-10-24 11:51] LABS: CK-MB VALUE MASS 10.9 NG/ML (<3.6)
[2023-10-24 11:52] LABS: MB/CK RELATIVE INDEX 0.84 (< OR =4)
[2023-10-24 13:35] LABS: BLOOD UREA NITROGEN 19 MG/DL (9-23); CALCIUM LEVEL 7.5 MG/DL (8.3-10.6); CARBON DIOXIDE LEVEL 29 MMOL/L (20-31); CHLORIDE LEVEL 102 MMOL/L (98-107); CK-MB VALUE MASS 9.8 NG/ML (<3.6); GLOMERULAR FILTRATION RATE > 60.0 (>49); GLUCOSE, FASTING 112 MG/DL (74-106); MAGNESIUM LEVEL 1.7 MG/DL (1.8-2.4); PHOSPHORUS LEVEL 2.8 MG/DL (2.4-5.1); POTASSIUM SERUM 3.1 MMOL/L (3.5-5.1); SODIUM LEVEL 138 MMOL/L (136-145)
[2023-10-24 13:47] LABS: CPK CREATINE PHOSPHOKINASE 1367 U/L (46-171); MB/CK RELATIVE INDEX 0.71 (< OR =4)
[2023-10-24] MEDS: OLANZapine 5 MG TAB PO SCH (20:22)
[2023-10-25] VITALS (15 sets, daily range): BP systolic 102–113; BP diastolic 54–80; TEMP 96.6–97.3; O2SAT 91–98
[2023-10-25 06:25] LABS: BASO % 0.9 % (0.0-1.0); EOS % 0.3 % (0.0-3.0); HEMATOCRIT 31.2 % (42.0-52.0); LYMPH # 0.2 10^3/uL (1.5-5.0); LYMPH % 6.9 % (24.0-44.0); MEAN CORPUSCULAR HEMOGLOBIN 31.7 pg (27.0-33.0); MEAN CORPUSCULAR HGB CONC 34.3 g/dl (32.0-36.5); MEAN CORPUSCULAR VOLUME 92.3 fl (80.0-96.0); MONO # 0.7 10^3/uL (0.0-0.8); MONO % 20.6 % (2.0-8.0); NEUTROPHILS # 2.1 10^3/uL (1.5-8.5); NEUTROPHILS % 66.6 % (36.0-66.0); RED BLOOD COUNT 3.38 10^6/uL (4.30-6.10); WHITE BLOOD COUNT 3.2 10^3/uL (4.0-10.0)
[2023-10-25 06:50] LABS: ALBUMIN 2.4 G/DL (3.2-5.2); ALKALINE PHOSPHATASE 59 U/L (46-116); ALT/SGPT < 9 U/L (7.0-40); AST/SGOT 35 U/L (<34); BILIRUBIN,TOTAL 0.3 MG/DL (0.3-1.2); BLOOD UREA NITROGEN 16 MG/DL (9-23); CALCIUM LEVEL 7.7 MG/DL (8.3-10.6); CARBON DIOXIDE LEVEL 24 MMOL/L (20-31); CHLORIDE LEVEL 107 MMOL/L (98-107); CREATININE FOR GFR 1.11 MG/DL (0.70-1.30); GLOMERULAR FILTRATION RATE > 60.0 (>49); GLUCOSE, FASTING 137 MG/DL (74-106); MAGNESIUM LEVEL 1.6 MG/DL (1.8-2.4); PHOSPHORUS LEVEL 2.4 MG/DL (2.4-5.1); POTASSIUM SERUM 3.6 MMOL/L (3.5-5.1); SODIUM LEVEL 140 MMOL/L (136-145); TOTAL PROTEIN 4.8 G/DL (5.7-8.2)
[2023-10-25 06:55] LABS: HEMOGLOBIN 10.7 g/dl (13.5-17.5)
[2023-10-25 06:56] LABS: PLATELET COUNT, AUTOMATED 73 10^3/uL (150-450)
[2023-10-25] MEDS: POTASSIUM CHLORIDE 10% LIQ 20MEQ/15ML UDC PO ONE ×2 (09:06→20:55)
[2023-10-25] MEDS: MAG SULF 1GM/100ML (MAG RUN) 1 GM in IV 1 EA IV SCH ×2 (09:07→20:55)
[2023-10-25 19:02] LABS: HEMOGLOBIN A1c 7.7 % (4.0-6.0)
[2023-10-25 19:13] LABS: BLOOD UREA NITROGEN 16 MG/DL (9-23); CALCIUM LEVEL 8.1 MG/DL (8.3-10.6); CARBON DIOXIDE LEVEL 25 MMOL/L (20-31); CHLORIDE LEVEL 107 MMOL/L (98-107); CREATININE FOR GFR 1.07 MG/DL (0.70-1.30); GLOMERULAR FILTRATION RATE > 60.0 (>49); GLUCOSE, FASTING 117 MG/DL (74-106); MAGNESIUM LEVEL 1.9 MG/DL (1.8-2.4); POTASSIUM SERUM 3.4 MMOL/L (3.5-5.1); SODIUM LEVEL 140 MMOL/L (136-145)
[2023-10-25] MEDS: POTASSIUM CHLORIDE 10MEQ SR TABLET PO ONE (22:04)
[2023-10-26] VITALS (10 sets, daily range): BP systolic 110–121; BP diastolic 71–78; TEMP 96.8–97; O2SAT 92–98
[2023-10-26] MEDS: POTASSIUM CHLORIDE 10MEQ SR TABLET PO ONE (00:04)
[2023-10-26 05:50] LABS: HEMATOCRIT 30.1 % (42.0-52.0); HEMOGLOBIN 10.2 g/dl (13.5-17.5); MEAN CORPUSCULAR HGB CONC 33.9 g/dl (32.0-36.5); MEAN CORPUSCULAR VOLUME 91.5 fl (80.0-96.0); RED BLOOD COUNT 3.29 10^6/uL (4.30-6.10)
[2023-10-26 05:57] LABS: PLATELET COUNT, AUTOMATED 75 10^3/uL (150-450)
[2023-10-26 05:58] LABS: ALBUMIN 2.4 G/DL (3.2-5.2); ALKALINE PHOSPHATASE 58 U/L (46-116); ALT/SGPT 15 U/L (7.0-40); AST/SGOT 24 U/L (<34); BILIRUBIN,TOTAL 0.3 MG/DL (0.3-1.2); BLOOD UREA NITROGEN 13 MG/DL (9-23); CARBON DIOXIDE LEVEL 25 MMOL/L (20-31); CHLORIDE LEVEL 107 MMOL/L (98-107); GLOMERULAR FILTRATION RATE > 60.0 (>49); GLUCOSE, FASTING 112 MG/DL (74-106); PHOSPHORUS LEVEL 2.4 MG/DL (2.4-5.1); POTASSIUM SERUM 3.9 MMOL/L (3.5-5.1); SODIUM LEVEL 139 MMOL/L (136-145); TOTAL PROTEIN 4.6 G/DL (5.7-8.2)
[2023-10-26 06:15] LABS: ATYPICAL LYMPH 1 % (0-5); LYMPHOCYTES 11 % (16-44); METAMYELOCYTES 2 % (0-0); MONOCYTES 17 % (0-5); NEUTROPHILS 69 % (28-66)
[2023-10-26 06:16] LABS: PLATELET ESTIMATE DECREASED (NORMAL)
[2023-10-26] MEDS ORDERED: MAGN400T2 PO (07:42)
[2023-10-26] MEDS ORDERED: POTA1TAB23 PO (07:42)
[2023-10-26] MEDS ORDERED: METF-818 PO (07:42)
[2023-10-26] MEDS ORDERED: AMIO200T49 PO (07:44)
== END 2023-10-26 10:11 | disposition home or self-care (01) | DRG 308 ==
LOC: M ED 23:20 → M ED INP 10-24 03:44 → M PCU 10-24 04:50 → M ED 10-24 04:50
PROVIDERS: ADMIT Preventive Medicine Undersea and Hyperbaric Medicine; ATTEND Internal Medicine
DX: I49.01 Ventricular fibrillation (principal); E43 Unspecified severe protein-calorie malnutrition; I24.89 Other forms of acute ischemic heart disease; I50.22 Chronic systolic (congestive) heart failure; D69.3 Immune thrombocytopenic purpura; C77.0 Secondary and unspecified malignant neoplasm of lymph nodes of head, face and neck; I47.20 Ventricular tachycardia, unspecified; I25.10 Atherosclerotic heart disease of native coronary artery without angina pectoris; I48.0 Paroxysmal atrial fibrillation; I11.0 Hypertensive heart disease with heart failure; I25.5 Ischemic cardiomyopathy; I95.9 Hypotension, unspecified; E83.42 Hypomagnesemia; E87.6 Hypokalemia; Z95.2 Presence of prosthetic heart valve; E11.9 Type 2 diabetes mellitus without complications; F39 Unspecified mood [affective] disorder; Z88.0 Allergy status to penicillin; Z88.8 Allergy status to other drugs, medicaments and biological substances; Z79.899 Other long term (current) drug therapy; Z79.82 Long term (current) use of aspirin; Z87.891 Personal history of nicotine dependence; C02.9 Malignant neoplasm of tongue, unspecified; Z92.3 Personal history of irradiation; Z92.21 Personal history of antineoplastic chemotherapy

== ENCOUNTER → 2023-10-28 | Outpatient (REF) | payer MEDICARE ==
[~2023-10-28] MED LIST changes: +AMIO200T49 PO; +ASPI-615 PO; +ELIQ5TAB PO; +FOLI1TAB11 PO; +LOPE2CA PO; +LORA-622 PO; +LUTE2000 PO; +MAGN400T2 PO; +METF-818 PO; +METF-838 PO; +MULT-40 PO; +ONDA-284 PO; -ONDA8TAB8 PO; +POTA1TAB23 PO
[2023-10-28 13:43] LABS: BLOOD UREA NITROGEN 13 MG/DL (9-23); CALCIUM LEVEL 8.2 MG/DL (8.3-10.6); CARBON DIOXIDE LEVEL 24 MMOL/L (20-31); CHLORIDE LEVEL 102 MMOL/L (98-107); CREATININE FOR GFR 1.16 MG/DL (0.70-1.30); GLOMERULAR FILTRATION RATE > 60.0 (>49); GLUCOSE, FASTING 137 MG/DL (74-106); MAGNESIUM LEVEL 1.1 MG/DL (1.8-2.4); POTASSIUM SERUM 3.7 MMOL/L (3.5-5.1); SODIUM LEVEL 139 MMOL/L (136-145)
== END ==
LOC: M LABDRWAD 13:03
PROVIDERS: ATTEND Internal Medicine
DX: C77.9 Secondary and unspecified malignant neoplasm of lymph node, unspecified (principal); D69.6 Thrombocytopenia, unspecified

== ENCOUNTER 2023-11-05 15:04 | Inpatient (IN) | payer MEDICARE ==
[~2023-11-05] VITALS: Ht 170.2 cm; Wt 94.0 kg
[~2023-11-05 15:04] MED LIST changes: -FOLI1TAB11 PO; -LOPE2CA PO; -METF-838 PO
[2023-11-05 15:56] LABS: BASO % 0.2 % (0.0-1.0); EOS % 0.4 % (0.0-3.0); HEMATOCRIT 37.5 % (42.0-52.0); HEMOGLOBIN 12.7 g/dl (13.5-17.5); LYMPH # 0.3 10^3/uL (1.5-5.0); LYMPH % 5.4 % (24.0-44.0); MEAN CORPUSCULAR HEMOGLOBIN 31.1 pg (27.0-33.0); MEAN CORPUSCULAR HGB CONC 33.9 g/dl (32.0-36.5); MEAN CORPUSCULAR VOLUME 91.7 fl (80.0-96.0); MONO # 0.5 10^3/uL (0.0-0.8); MONO % 8.6 % (2.0-8.0); NEUTROPHILS # 4.5 10^3/uL (1.5-8.5); NEUTROPHILS % 84.1 % (36.0-66.0); RED BLOOD COUNT 4.09 10^6/uL (4.30-6.10); WHITE BLOOD COUNT 5.4 10^3/uL (4.0-10.0)
[2023-11-05 15:57] LABS: PLATELET COUNT, AUTOMATED 73 10^3/uL (150-450)
[2023-11-05 16:18] LABS: ALBUMIN 3.2 G/DL (3.2-5.2); BILIRUBIN,DIRECT 0.2 MG/DL (<0.4); BILIRUBIN,TOTAL 0.4 MG/DL (0.3-1.2); CALCIUM LEVEL 8.9 MG/DL (8.3-10.6); CREATININE FOR GFR 1.35 MG/DL (0.70-1.30); GLOMERULAR FILTRATION RATE 56.8 (>49); MAGNESIUM LEVEL 1.1 MG/DL (1.8-2.4); POTASSIUM SERUM 3.7 MMOL/L (3.5-5.1); PREALBUMIN 28.8 MG/DL (10.0-40.0); TOTAL PROTEIN 6.2 G/DL (5.7-8.2)
[2023-11-05] MEDS: NS 1,000 ML IV SCH ×2 (16:38→18:21)
[2023-11-05] MEDS: NS 500 ML IV ONE ×2 (16:38→18:21)
[2023-11-05] MEDS: MAG SULF 1GM/100ML (MAG RUN) 1 GM in IV 1 EA IV ONE ×2 (17:16→18:27)
[2023-11-05] MEDS ORDERED: GLUCOSE 4 GM CHEW PO PRN (18:05)
[2023-11-05] MEDS ORDERED: DEXTROSE 50% 50ML SYRINGE IV PRN (18:05)
[2023-11-05] MEDS ORDERED: GLUCAGON INJ 1MG VIAL SC PRN (18:05)
[2023-11-05] MEDS ORDERED: MAGIC MOUTHWASH 5ML ORAL SYRINGE SS PRN (18:05)
[2023-11-05] MEDS ORDERED: NS 1,000 ML IV ONE (18:10)
[2023-11-05] MEDS: INSULIN LISPRO (NovoLOG) PER UNIT SC SCH (18:21)
[2023-11-05] MEDS ORDERED: AMIO200T49 PO (18:34)
[2023-11-05] MEDS ORDERED: POTA1TAB23 PO (18:34)
[2023-11-05] MEDS ORDERED: ELIQ5TAB PO (18:34)
[2023-11-05] MEDS ORDERED: METF-838 PO (18:34)
[2023-11-05] MEDS ORDERED: MAGN400T2 PO (18:34)
[2023-11-05] MEDS ORDERED: HOME MED LIST COMPLETE! XX SCH (18:40)
[2023-11-05] MEDS: POTASSIUM CHLORIDE 10MEQ SR TABLET PO SCH (20:26)
[2023-11-05] MEDS: ATORVASTATIN 20 MG TAB PO SCH (20:26)
[2023-11-05] MEDS: AMIODARONE 200 MG TAB (PACERONE) PO SCH (20:26)
[2023-11-05] MEDS: PANTOPRAZOLE 40MG VIAL IV SCH (20:26)
[2023-11-05] MEDS: MAGNESIUM OXIDE 400MG TAB (MAG-OX) PO SCH (20:27)
[2023-11-05] MEDS: ENOXAPARIN 100MG/1ML SYRINGE (J1650 PER 10MG) SC SCH (20:28)
[2023-11-05] MEDS ORDERED: ONDANSETRON 4MG ORAL DISINTEGRATING TAB PO SCH (21:00)
[2023-11-05] MEDS ORDERED: OLANZapine 5 MG TAB PO SCH (21:00)
[2023-11-05 21:41] VITALS: BP 91/53; TEMP 97.2; O2SAT 99
[2023-11-06] VITALS (7 sets, daily range): BP systolic 93–107; BP diastolic 57–62; TEMP 96–98; O2SAT 95–99
[2023-11-06 05:48] LABS: HEMATOCRIT 28.3 % (42.0-52.0); MEAN CORPUSCULAR HEMOGLOBIN 31.7 pg (27.0-33.0); MEAN CORPUSCULAR HGB CONC 35.3 g/dl (32.0-36.5); MEAN CORPUSCULAR VOLUME 89.8 fl (80.0-96.0); RED BLOOD COUNT 3.15 10^6/uL (4.30-6.10); WHITE BLOOD COUNT 3.5 10^3/uL (4.0-10.0)
[2023-11-06 05:50] LABS: PLATELET COUNT, AUTOMATED 71 10^3/uL (150-450)
[2023-11-06 06:28] LABS: ALBUMIN 2.5 G/DL (3.2-5.2); ALKALINE PHOSPHATASE 50 U/L (46-116); ALT/SGPT 10 U/L (7.0-40); AST/SGOT 12 U/L (<34); BILIRUBIN,TOTAL 0.3 MG/DL (0.3-1.2); BLOOD UREA NITROGEN 15 MG/DL (9-23); CARBON DIOXIDE LEVEL 18 MMOL/L (20-31); CHLORIDE LEVEL 106 MMOL/L (98-107); CREATININE FOR GFR 1.05 MG/DL (0.70-1.30); GLOMERULAR FILTRATION RATE > 60.0 (>49); GLUCOSE, FASTING 81 MG/DL (74-106); POTASSIUM SERUM 3.4 MMOL/L (3.5-5.1); SODIUM LEVEL 139 MMOL/L (136-145); TOTAL PROTEIN 4.9 G/DL (5.7-8.2)
[2023-11-06] MEDS: ONDANSETRON 4MG ORAL DISINTEGRATING TAB PO SCH (07:58)
[2023-11-06] MEDS: D5W/LR 1,000 ML IV SCH (07:58)
[2023-11-06 08:15] LABS: INR 2.38; PARTIAL THROMBOPLASTIN TIME 34.1 SECONDS (24.8-34.2); PROTHROMBIN TIME 25.2 SECONDS (12.5-14.5)
[2023-11-06] MEDS: MAG SULF 1GM/100ML (MAG RUN) 1 GM in IV 1 EA IV SCH (08:22)
[2023-11-06] MEDS: POTASSIUM CHLORIDE 10% LIQ 20MEQ/15ML UDC PO SCH (08:48)
[2023-11-06] MEDS ORDERED: ENOXAPARIN 40MG/0.4ML SYRINGE (J1650 PER 10MG) SC SCH (09:00)
[2023-11-06] MEDS: CLOPIDOGREL 75 MG TAB PO SCH (21:17)
[2023-11-07] VITALS (10 sets, daily range): BP systolic 101–122; BP diastolic 60–72; TEMP 96.4–97.3; O2SAT 95–98
[2023-11-07 06:20] LABS: HEMATOCRIT 25.4 % (42.0-52.0); MEAN CORPUSCULAR HEMOGLOBIN 31.7 pg (27.0-33.0); MEAN CORPUSCULAR HGB CONC 35.4 g/dl (32.0-36.5); MEAN CORPUSCULAR VOLUME 89.4 fl (80.0-96.0); RED BLOOD COUNT 2.84 10^6/uL (4.30-6.10); WHITE BLOOD COUNT 2.4 10^3/uL (4.0-10.0)
[2023-11-07 06:33] LABS: PLATELET COUNT, AUTOMATED 59 10^3/uL (150-450)
[2023-11-07 06:38] LABS: INR 2.13; PARTIAL THROMBOPLASTIN TIME 33.1 SECONDS (24.8-34.2)
[2023-11-07 06:51] LABS: ALBUMIN 2.5 G/DL (3.2-5.2); ALKALINE PHOSPHATASE 47 U/L (46-116); ALT/SGPT 10 U/L (7.0-40); AST/SGOT 11 U/L (<34); BILIRUBIN,TOTAL 0.3 MG/DL (0.3-1.2); BLOOD UREA NITROGEN 9 MG/DL (9-23); CALCIUM LEVEL 7.8 MG/DL (8.3-10.6); CARBON DIOXIDE LEVEL 24 MMOL/L (20-31); CHLORIDE LEVEL 104 MMOL/L (98-107); CREATININE FOR GFR 0.98 MG/DL (0.70-1.30); GLOMERULAR FILTRATION RATE > 60.0 (>49); GLUCOSE, FASTING 129 MG/DL (74-106); POTASSIUM SERUM 3.2 MMOL/L (3.5-5.1); SODIUM LEVEL 137 MMOL/L (136-145); TOTAL PROTEIN 4.6 G/DL (5.7-8.2)
[2023-11-07] MEDS: POTASSIUM CHLORIDE 10% LIQ 20MEQ/15ML UDC PO SCH (10:42)
[2023-11-07] MEDS: MAG SULF 1GM/100ML (MAG RUN) 1 GM in IV 1 EA IV SCH (10:44)
[2023-11-07] MEDS: ENOXAPARIN 100MG/1ML SYRINGE (J1650 PER 10MG) SC SCH (12:31)
[2023-11-07] MEDS: MAGNESIUM OXIDE 400MG TAB (MAG-OX) PO SCH (17:02)
[2023-11-08] VITALS (16 sets, daily range): BP systolic 113–129; BP diastolic 68–80; TEMP 96.2–98.4; O2SAT 95–98
[2023-11-08 06:13] LABS: HEMATOCRIT 26.6 % (42.0-52.0); HEMOGLOBIN 9.2 g/dl (13.5-17.5); MEAN CORPUSCULAR HEMOGLOBIN 31.3 pg (27.0-33.0); MEAN CORPUSCULAR HGB CONC 34.6 g/dl (32.0-36.5); MEAN CORPUSCULAR VOLUME 90.5 fl (80.0-96.0); RED BLOOD COUNT 2.94 10^6/uL (4.30-6.10); WHITE BLOOD COUNT 1.9 10^3/uL (4.0-10.0)
[2023-11-08 06:18] LABS: PLATELET COUNT, AUTOMATED 71 10^3/uL (150-450)
[2023-11-08 06:30] LABS: INR 2.13; PARTIAL THROMBOPLASTIN TIME 40.9 SECONDS (24.8-34.2); PROTHROMBIN TIME 23.1 SECONDS (12.5-14.5)
[2023-11-08] MEDS ORDERED: EPINEPHrine INJ 1 MG/ML 1ML AMP IM PRN (07:01)
[2023-11-08] MEDS ORDERED: methylPREDNISolone 125MG 2ML VIAL IV PRN (07:01)
[2023-11-08] MEDS ORDERED: ALBUTEROL SULFATE 2.5MG/0.5ML INH NEB SOLN INH PRN (07:01)
[2023-11-08] MEDS ORDERED: diphenhydrAMINE 50MG/ML VIAL IV PRN (07:01)
[2023-11-08 07:10] LABS: ALBUMIN 2.6 G/DL (3.2-5.2); ALKALINE PHOSPHATASE 50 U/L (46-116); ALT/SGPT 10 U/L (7.0-40); AST/SGOT 15 U/L (<34); BILIRUBIN,TOTAL 0.3 MG/DL (0.3-1.2); BLOOD UREA NITROGEN 5 MG/DL (9-23); CALCIUM LEVEL 8.5 MG/DL (8.3-10.6); CARBON DIOXIDE LEVEL 26 MMOL/L (20-31); CHLORIDE LEVEL 104 MMOL/L (98-107); CREATININE FOR GFR 1.01 MG/DL (0.70-1.30); GLOMERULAR FILTRATION RATE > 60.0 (>49); GLUCOSE, FASTING 120 MG/DL (74-106); MAGNESIUM LEVEL 1.7 MG/DL (1.8-2.4); POTASSIUM SERUM 3.5 MMOL/L (3.5-5.1); SODIUM LEVEL 138 MMOL/L (136-145); TOTAL PROTEIN 4.6 G/DL (5.7-8.2)
[2023-11-08] MEDS: MAG SULF 1GM/100ML (MAG RUN) 1 GM in IV 1 EA IV SCH (08:28)
[2023-11-08] MEDS: ACETAMINOPHEN TAB 650MG DOSE (2X325MG) PO SCH (10:45)
[2023-11-08] MEDS: diphenhydrAMINE 25MG CAP PO SCH (10:45)
[2023-11-08] MEDS: dexAMETHasone 4 MG TAB PO SCH (10:49)
[2023-11-08] MEDS: IMMUNE GLOBULIN 10% 80 GM in IV 1 EA IV SCH (11:40)
[2023-11-08] MEDS ORDERED: PHYTONADIONE 2.5 MG **1/2 TAB PO ONE (12:20)
[2023-11-08] MEDS: PHYTONADIONE 1.25 MG 1/4 TAB PO ONE (15:42)
[2023-11-08] MEDS: IMMUNE GLOBULIN 10% 10 GM in IV 1 EA IV SCH (16:31)
[2023-11-09] VITALS (17 sets, daily range): BP systolic 104–135; BP diastolic 65–82; TEMP 96.5–98.5; O2SAT 95–98
[2023-11-09 05:59] LABS: HEMATOCRIT 24.5 % (42.0-52.0); HEMOGLOBIN 8.6 g/dl (13.5-17.5); MEAN CORPUSCULAR HEMOGLOBIN 31.4 pg (27.0-33.0); MEAN CORPUSCULAR HGB CONC 35.1 g/dl (32.0-36.5); MEAN CORPUSCULAR VOLUME 89.4 fl (80.0-96.0); RED BLOOD COUNT 2.74 10^6/uL (4.30-6.10); WHITE BLOOD COUNT 2.1 10^3/uL (4.0-10.0)
[2023-11-09 06:02] LABS: PLATELET COUNT, AUTOMATED 71 10^3/uL (150-450)
[2023-11-09 06:07] LABS: INR 1.55; PARTIAL THROMBOPLASTIN TIME 37.2 SECONDS (24.8-34.2); PROTHROMBIN TIME 18.1 SECONDS (12.5-14.5)
[2023-11-09 06:17] LABS: ALBUMIN 2.2 G/DL (3.2-5.2); ALKALINE PHOSPHATASE 46 U/L (46-116); ALT/SGPT 9 U/L (7.0-40); AST/SGOT 12 U/L (<34); BILIRUBIN,TOTAL 0.3 MG/DL (0.3-1.2); BLOOD UREA NITROGEN 10 MG/DL (9-23); CARBON DIOXIDE LEVEL 24 MMOL/L (20-31); CHLORIDE LEVEL 98 MMOL/L (98-107); GLOMERULAR FILTRATION RATE > 60.0 (>49); GLUCOSE, FASTING 181 MG/DL (74-106); MAGNESIUM LEVEL 1.7 MG/DL (1.8-2.4); POTASSIUM SERUM 4.2 MMOL/L (3.5-5.1); SODIUM LEVEL 129 MMOL/L (136-145); TOTAL PROTEIN 7.1 G/DL (5.7-8.2)
[2023-11-09] MEDS ORDERED: diphenhydrAMINE 50MG/ML VIAL IV PRN (07:01)
[2023-11-09] MEDS ORDERED: ALBUTEROL SULFATE 2.5MG/0.5ML INH NEB SOLN INH PRN (07:01)
[2023-11-09] MEDS ORDERED: EPINEPHrine INJ 1 MG/ML 1ML AMP IM PRN (07:01)
[2023-11-09] MEDS ORDERED: methylPREDNISolone 125MG 2ML VIAL IV PRN (07:01)
[2023-11-09 08:49] LABS: BLOOD UREA NITROGEN 10 MG/DL (9-23); CALCIUM LEVEL 7.9 MG/DL (8.3-10.6); CARBON DIOXIDE LEVEL 23 MMOL/L (20-31); CHLORIDE LEVEL 101 MMOL/L (98-107); CREATININE FOR GFR 1.07 MG/DL (0.70-1.30); GLOMERULAR FILTRATION RATE > 60.0 (>49); GLUCOSE, FASTING 184 MG/DL (74-106); POTASSIUM SERUM 4.1 MMOL/L (3.5-5.1); SODIUM LEVEL 130 MMOL/L (136-145)
[2023-11-09] MEDS ORDERED: D5W/0.9% SODIUM CHLORIDE 1,000 ML IV SCH (12:05)
[2023-11-09] MEDS: D5W/LR 1,000 ML IV SCH (17:58)
[2023-11-09] MEDS: SPIRONOLACTONE 25 MG TAB PO SCH (20:12)
[2023-11-10] VITALS (7 sets, daily range): BP systolic 114–133; BP diastolic 62–78; TEMP 97–97.8; O2SAT 96–98
[2023-11-10 05:48] LABS: HEMATOCRIT 22.5 % (42.0-52.0); HEMOGLOBIN 7.8 g/dl (13.5-17.5); MEAN CORPUSCULAR HEMOGLOBIN 30.8 pg (27.0-33.0); MEAN CORPUSCULAR HGB CONC 34.7 g/dl (32.0-36.5); MEAN CORPUSCULAR VOLUME 88.9 fl (80.0-96.0); RED BLOOD COUNT 2.53 10^6/uL (4.30-6.10); WHITE BLOOD COUNT 2.7 10^3/uL (4.0-10.0)
[2023-11-10 05:51] LABS: PLATELET COUNT, AUTOMATED 64 10^3/uL (150-450)
[2023-11-10 05:59] LABS: INR 1.4; PARTIAL THROMBOPLASTIN TIME 33.2 SECONDS (24.8-34.2); PROTHROMBIN TIME 16.7 SECONDS (12.5-14.5)
[2023-11-10 06:27] LABS: ALBUMIN 1.9 G/DL (3.2-5.2); BILIRUBIN,TOTAL 0.2 MG/DL (0.3-1.2); CALCIUM LEVEL 7.7 MG/DL (8.3-10.6); CREATININE FOR GFR 1.33 MG/DL (0.70-1.30); GLOMERULAR FILTRATION RATE 57.8 (>49); POTASSIUM SERUM 4.7 MMOL/L (3.5-5.1); TOTAL PROTEIN 7.2 G/DL (5.7-8.2)
[2023-11-10] MEDS ORDERED: NS 1,000 ML IV SCH (06:35)
[2023-11-10] MEDS ORDERED: FUROSEMIDE 40MG/4ML VIAL IV ONE (07:00)
[2023-11-10] MEDS ORDERED: dexAMETHasone 4 MG TAB PO SCH (09:00)
[2023-11-10] MEDS: MAG SULF 1GM/100ML (MAG RUN) 1 GM in IV 1 EA IV SCH (09:01)
[2023-11-10] MEDS: DAPAGLIFLOZIN PROPANEDIOL 10MG TABLET (FARXIGA) PO SCH (09:03)
[2023-11-10] MEDS ORDERED: PILL CUTTER 1 EACH XX ONE (09:11)
[2023-11-10] MEDS: KCL 20MEQ IN D5/NS 1000ML 1,000 ML IV SCH (11:07)
[2023-11-10] MEDS ORDERED: fentaNYL 100 MCG/2 ML INJECTION As Ordered ONE (11:51)
[2023-11-10] MEDS ORDERED: LIDOCAINE 2% 100MG/5ML SDV (FOR ANES.) As Ordered ONE (11:51)
[2023-11-10] MEDS ORDERED: propofoL 200 MG/20 ML VIAL As Ordered ONE (11:51)
[2023-11-10] MEDS: NS 1,000 ML IV SCH ×2 (12:55→18:51)
[2023-11-10] MEDS ORDERED: fentaNYL 100 MCG/2 ML INJECTION IV PRN (12:55)
[2023-11-10] MEDS ORDERED: ONDANSETRON 4MG 2ML VIAL IV PRN (12:55)
[2023-11-10] MEDS ORDERED: oxyCODONE 5MG TAB PO PRN (12:55)
[2023-11-10 14:50] LABS: CALCIUM LEVEL 7.8 MG/DL (8.3-10.6); CREATININE FOR GFR 1.29 MG/DL (0.70-1.30); GLOMERULAR FILTRATION RATE 59.9 (>49); POTASSIUM SERUM 5.2 MMOL/L (3.5-5.1)
[2023-11-10 21:22] LABS: CALCIUM LEVEL 7.7 MG/DL (8.3-10.6); CREATININE FOR GFR 1.3 MG/DL (0.70-1.30); GLOMERULAR FILTRATION RATE 59.4 (>49); POTASSIUM SERUM 5.3 MMOL/L (3.5-5.1)
[2023-11-11] VITALS (7 sets, daily range): BP systolic 113–138; BP diastolic 68–84; TEMP 97–98.3; O2SAT 95–99
[2023-11-11 04:34] LABS: HEMATOCRIT 24.4 % (42.0-52.0); HEMOGLOBIN 8.3 g/dl (13.5-17.5); RED BLOOD COUNT 2.68 10^6/uL (4.30-6.10)
[2023-11-11 04:37] LABS: PLATELET COUNT, AUTOMATED 47 10^3/uL (150-450)
[2023-11-11 04:45] LABS: INR 1.32; PARTIAL THROMBOPLASTIN TIME 28.2 SECONDS (24.8-34.2); PROTHROMBIN TIME 15.9 SECONDS (12.5-14.5)
[2023-11-11 04:53] LABS: CALCIUM LEVEL 7.8 MG/DL (8.3-10.6); CREATININE FOR GFR 1.38 MG/DL (0.70-1.30); GLOMERULAR FILTRATION RATE 55.4 (>49); POTASSIUM SERUM 5.2 MMOL/L (3.5-5.1)
[2023-11-11 08:34] LABS: PHOSPHORUS LEVEL 2.8 MG/DL (2.4-5.1)
[2023-11-11] MEDS: NS 1,000 ML IV SCH (08:38)
[2023-11-11] MEDS: AMIODARONE 200 MG TAB (PACERONE) PO SCH (09:41)
[2023-11-11 12:53] LABS: CALCIUM LEVEL 7.7 MG/DL (8.3-10.6); CREATININE FOR GFR 1.35 MG/DL (0.70-1.30); GLOMERULAR FILTRATION RATE 56.8 (>49); POTASSIUM SERUM 4.3 MMOL/L (3.5-5.1)
[2023-11-11] MEDS: LOPERAMIDE 2 MG CAPLET PO SCH (14:27)
[2023-11-12 03:51] VITALS: BP 110/73; TEMP 97.8; O2SAT 96
[2023-11-12 06:34] LABS: BASO % 0.7 % (0.0-1.0); EOS % 0.7 % (0.0-3.0); HEMATOCRIT 26.8 % (42.0-52.0); HEMOGLOBIN 9.1 g/dl (13.5-17.5); LYMPH # 0.1 10^3/uL (1.5-5.0); LYMPH % 8.1 % (24.0-44.0); MEAN CORPUSCULAR HEMOGLOBIN 31.2 pg (27.0-33.0); MEAN CORPUSCULAR VOLUME 91.8 fl (80.0-96.0); MONO # 0.2 10^3/uL (0.0-0.8); MONO % 11.5 % (2.0-8.0); NEUTROPHILS # 1.1 10^3/uL (1.5-8.5); RED BLOOD COUNT 2.92 10^6/uL (4.30-6.10); WHITE BLOOD COUNT 1.5 10^3/uL (4.0-10.0)
[2023-11-12 06:49] LABS: BLOOD UREA NITROGEN 15 MG/DL (9-23); CALCIUM LEVEL 7.9 MG/DL (8.3-10.6); CARBON DIOXIDE LEVEL 30 MMOL/L (20-31); CHLORIDE LEVEL 101 MMOL/L (98-107); GLOMERULAR FILTRATION RATE > 60.0 (>49); GLUCOSE, FASTING 131 MG/DL (74-106); POTASSIUM SERUM 4.2 MMOL/L (3.5-5.1); SODIUM LEVEL 136 MMOL/L (136-145)
[2023-11-12 06:53] VITALS: BP 99/57; TEMP 97.9; O2SAT 96
[2023-11-12 07:15] LABS: PLATELET COUNT, AUTOMATED 30 10^3/uL (150-450)
[2023-11-12 07:39] VITALS: BP 126/80; TEMP 98; O2SAT 95
[2023-11-12] MEDS ORDERED: MAGN400T2 PO (10:46)
[2023-11-12] MEDS ORDERED: AMIO200T49 PO (10:46)
[2023-11-12] MEDS ORDERED: LOPE2CA PO (10:46)
[2023-11-12] MEDS ORDERED: CARV25TA PO (10:46)
[2023-11-12] MEDS ORDERED: FOLI1TAB11 PO (15:14)
== END 2023-11-12 14:13 | disposition home or self-care (01) | DRG 391 ==
LOC: M ED 15:04 → M ED INP 17:54 → M PCU 21:35
PROVIDERS: ADMIT Internal Medicine; ATTEND Internal Medicine Nephrology
PROC: 0DH63UZ Insertion of Feeding Device into Stomach, Percutaneous Approach (ICD-10-PCS; principal; 2023-11-10 13:30)
DX: R13.10 Dysphagia, unspecified (principal); E43 Unspecified severe protein-calorie malnutrition; D61.810 Antineoplastic chemotherapy induced pancytopenia; E87.1 Hypo-osmolality and hyponatremia; C77.0 Secondary and unspecified malignant neoplasm of lymph nodes of head, face and neck; D69.3 Immune thrombocytopenic purpura; D61.818 Other pancytopenia; N17.9 Acute kidney failure, unspecified; I50.42 Chronic combined systolic (congestive) and diastolic (congestive) heart failure; D68.9 Coagulation defect, unspecified; R11.2 Nausea with vomiting, unspecified; I11.0 Hypertensive heart disease with heart failure; E11.649 Type 2 diabetes mellitus with hypoglycemia without coma; I25.10 Atherosclerotic heart disease of native coronary artery without angina pectoris; I25.5 Ischemic cardiomyopathy; I48.0 Paroxysmal atrial fibrillation; I95.9 Hypotension, unspecified; R63.0 Anorexia; R53.1 Weakness; Z95.810 Presence of automatic (implantable) cardiac defibrillator; E83.42 Hypomagnesemia; K58.0 Irritable bowel syndrome with diarrhea; C02.9 Malignant neoplasm of tongue, unspecified; E78.5 Hyperlipidemia, unspecified; R63.4 Abnormal weight loss; E87.5 Hyperkalemia; R00.1 Bradycardia, unspecified; Z92.3 Personal history of irradiation; Z95.2 Presence of prosthetic heart valve; Z88.0 Allergy status to penicillin; Z88.8 Allergy status to other drugs, medicaments and biological substances; Z79.899 Other long term (current) drug therapy; Z87.891 Personal history of nicotine dependence

== ENCOUNTER → 2023-11-18 | Outpatient (CLI) | payer MEDICARE ==
[~2023-11-18] MED LIST changes: +FOLI1TAB11 PO; +LOPE2CA PO; +METF-838 PO
== END ==
LOC: M ADAMS 12:06
PROVIDERS: ATTEND Family Medicine
DX: R05.3 Chronic cough (principal)

== ENCOUNTER → 2023-11-18 | Outpatient (REF) | payer MEDICARE ==
[2023-11-18 18:53] LABS: ALBUMIN 2.4 G/DL (3.2-5.2); ALKALINE PHOSPHATASE 67 U/L (46-116); ALT/SGPT 10 U/L (7.0-40); AST/SGOT 16 U/L (<34); BILIRUBIN,TOTAL 0.4 MG/DL (0.3-1.2); BLOOD UREA NITROGEN 18 MG/DL (9-23); CALCIUM LEVEL 8.3 MG/DL (8.3-10.6); CARBON DIOXIDE LEVEL 32 MMOL/L (20-31); CHLORIDE LEVEL 96 MMOL/L (98-107); CHOLESTEROL LEVEL 100 MG/DL (<200); CHOLESTEROL RISK RATIO 2.57 (<5); CREATININE FOR GFR 1.22 MG/DL (0.70-1.30); GLOMERULAR FILTRATION RATE > 60.0 (>49); GLUCOSE, FASTING 162 MG/DL (74-106); HDL CHOLESTEROL 38.9 MG/DL (>40); LDL CHOLESTEROL 25.9 MG/DL (<100); MAGNESIUM LEVEL 1.8 MG/DL (1.8-2.4); NON-HDL-C 61.1 MG/DL; POTASSIUM SERUM 4.5 MMOL/L (3.5-5.1); SODIUM LEVEL 132 MMOL/L (136-145); THYROID STIMULATING HORMONE 15.414 uIU/ML (0.55-4.78); TOTAL 25(OH) VITAMIN D 17.2 NG/ML (20.0-100.0); TOTAL PROTEIN 6.8 G/DL (5.7-8.2); TRIGLYCERIDES LEVEL 176 MG/DL (<150); VITAMIN B12 LEVEL 1112 PG/ML (211-911)
[2023-11-18 18:54] LABS: FREE T4 1.05 NG/DL (0.89-1.76)
[2023-11-18 18:59] LABS: HEMATOCRIT 28.2 % (42.0-52.0); HEMOGLOBIN 9.2 g/dl (13.5-17.5); MEAN CORPUSCULAR HEMOGLOBIN 30.3 pg (27.0-33.0); MEAN CORPUSCULAR HGB CONC 32.6 g/dl (32.0-36.5); MEAN CORPUSCULAR VOLUME 92.8 fl (80.0-96.0); RED BLOOD COUNT 3.04 10^6/uL (4.30-6.10); WHITE BLOOD COUNT 1.9 10^3/uL (4.0-10.0)
[2023-11-18 19:01] LABS: PLATELET COUNT, AUTOMATED 33 10^3/uL (150-450)
[2023-11-18 19:10] LABS: HEMOGLOBIN A1c 7.6 % (4.0-6.0)
== END ==
LOC: M SFHCPLAZ 11:48
PROVIDERS: ATTEND Internal Medicine Hematology
DX: I25.10 Atherosclerotic heart disease of native coronary artery without angina pectoris (principal); E11.9 Type 2 diabetes mellitus without complications; D69.6 Thrombocytopenia, unspecified; Z79.899 Other long term (current) drug therapy

== ENCOUNTER → 2023-11-28 | Outpatient (CLI) | payer MEDICARE ==
[~2023-11-28] MED LIST changes: +ISOVUE-370 76% 100ML VIAL As Ordered ONE; +SYNT25TA PO
== END ==
LOC: M RAD 14:02
PROVIDERS: ATTEND Internal Medicine Hematology & Oncology
DX: C01 Malignant neoplasm of base of tongue (principal)

== ENCOUNTER → 2023-12-22 | Outpatient (REF) | payer MEDICARE ==
[~2023-12-22] MED LIST changes: -ISOVUE-370 76% 100ML VIAL As Ordered ONE
== END ==
LOC: M LABDRWAD 13:16
PROVIDERS: ATTEND Nurse Practitioner Acute Care
DX: I48.11 Longstanding persistent atrial fibrillation (principal)

== ENCOUNTER → 2024-01-12 | Outpatient (CLI) | payer MEDICARE | LOC: M PLARAD 10:35 | PROVIDERS: ATTEND General Practice | DX: C01 Malignant neoplasm of base of tongue (principal) | CPT/HCPCS: 78815; A9552 ==

== ENCOUNTER → 2024-01-15 | Outpatient (CLI) | payer MEDICARE ==
[~2024-01-15] MED LIST changes: +LEVO50TA5
== END ==
LOC: M ONCR 10:50
PROVIDERS: ATTEND General Practice
DX: C01 Malignant neoplasm of base of tongue (principal); C77.9 Secondary and unspecified malignant neoplasm of lymph node, unspecified; R43.8 Other disturbances of smell and taste; Z87.891 Personal history of nicotine dependence; I89.0 Lymphedema, not elsewhere classified; Z79.02 Long term (current) use of antithrombotics/antiplatelets; Z79.84 Long term (current) use of oral hypoglycemic drugs; Z79.890 Hormone replacement therapy; Z79.899 Other long term (current) drug therapy; Z88.0 Allergy status to penicillin; Z88.1 Allergy status to other antibiotic agents; Z88.8 Allergy status to other drugs, medicaments and biological substances; Z92.21 Personal history of antineoplastic chemotherapy; Z92.3 Personal history of irradiation; Z93.6 Other artificial openings of urinary tract status
CPT/HCPCS: 31575; G0463

== ENCOUNTER → 2024-02-23 | Outpatient (RCR) | payer MEDICARE | LOC: M PT 02-02 11:46 | PROVIDERS: ATTEND General Practice | DX: I89.0 Lymphedema, not elsewhere classified (principal) ==

== ENCOUNTER 2024-03-03 09:58 | Outpatient (RCR) | payer MEDICARE | END 2024-03-25 | LOC: M PT 09:58 | PROVIDERS: ATTEND General Practice | DX: I89.0 Lymphedema, not elsewhere classified (principal) ==

== ENCOUNTER → 2024-03-11 | Outpatient (CLI) | payer MEDICARE ==
[~2024-03-11] MED LIST changes: +LIDOCAINE 1% MDV 20ML VIAL As Ordered ONE
[2024-03-11 09:10] VITALS: TEMP 98
[2024-03-11 09:30] VITALS: BP 109/79; O2SAT 96
== END ==
LOC: M IRPRO 08:44
PROVIDERS: ATTEND General Practice
DX: C01 Malignant neoplasm of base of tongue (principal)
CPT/HCPCS: 74018; G0463

== ENCOUNTER → 2024-03-22 | Outpatient (REF) | payer MEDICARE ==
[~2024-03-22] MED LIST changes: -LIDOCAINE 1% MDV 20ML VIAL As Ordered ONE
[2024-03-22 14:41] LABS: HEMOGLOBIN A1c 5.5 % (4.0-6.0)
[2024-03-22 14:54] LABS: CALCIUM LEVEL 9.7 MG/DL (8.3-10.6); CREATININE FOR GFR 1.49 MG/DL (0.70-1.30); GLOMERULAR FILTRATION RATE 50.7 (>49); POTASSIUM SERUM 4.2 MMOL/L (3.5-5.1)
[2024-03-22 14:56] LABS: FREE T4 1.28 NG/DL (0.89-1.76); THYROID STIMULATING HORMONE 12.821 uIU/ML (0.55-4.78)
== END ==
LOC: M SFHCADAM 08:12
PROVIDERS: ATTEND Family Medicine
DX: E03.2 Hypothyroidism due to medicaments and other exogenous substances (principal); E11.9 Type 2 diabetes mellitus without complications

== ENCOUNTER → 2024-04-09 | Outpatient (CLI) | payer MEDICARE ==
[~2024-04-09] MED LIST changes: +ISOVUE-370 76% 100ML VIAL As Ordered ONE; +METF-1157 PO; -METF-818 PO
== END ==
LOC: M RAD 12:11
PROVIDERS: ATTEND General Practice
DX: C01 Malignant neoplasm of base of tongue (principal)
CPT/HCPCS: 70491; Q9967

== ENCOUNTER → 2024-04-16 | Outpatient (CLI) | payer MEDICARE ==
[~2024-04-16] MED LIST changes: -ISOVUE-370 76% 100ML VIAL As Ordered ONE
== END ==
LOC: M ONCR 11:17
PROVIDERS: ATTEND General Practice
DX: Z08 Encounter for follow-up examination after completed treatment for malignant neoplasm (principal); Z85.810 Personal history of malignant neoplasm of tongue; Z87.891 Personal history of nicotine dependence; Z92.21 Personal history of antineoplastic chemotherapy; Z92.3 Personal history of irradiation; Z88.0 Allergy status to penicillin; Z88.1 Allergy status to other antibiotic agents; Z88.8 Allergy status to other drugs, medicaments and biological substances; Z79.899 Other long term (current) drug therapy; Z79.84 Long term (current) use of oral hypoglycemic drugs; Z79.890 Hormone replacement therapy; Z79.02 Long term (current) use of antithrombotics/antiplatelets
CPT/HCPCS: 31575; G0463

== ENCOUNTER → 2024-06-21 | Outpatient (REF) | payer MEDICARE ==
[~2024-06-21] MED LIST changes: +FURO40TA2 PO; +SYNT75TA
[2024-06-21 15:09] LABS: ALBUMIN 4.1 G/DL (3.2-5.2); BILIRUBIN,TOTAL 0.5 MG/DL (0.3-1.2); CALCIUM LEVEL 9.7 MG/DL (8.3-10.6); CHOLESTEROL RISK RATIO 3.67 (<5); CREATININE FOR GFR 1.68 MG/DL (0.70-1.30); HDL CHOLESTEROL 44.1 MG/DL (>40); LDL CHOLESTEROL 63.1 MG/DL (<100); NON-HDL-C 117.9 MG/DL; POTASSIUM SERUM 4.3 MMOL/L (3.5-5.1); TOTAL PROTEIN 7.3 G/DL (5.7-8.2)
[2024-06-21 15:12] LABS: THYROID STIMULATING HORMONE 5.569 uIU/ML (0.55-4.78)
== END ==
LOC: M LABDRWAD 13:14
PROVIDERS: ATTEND Nurse Practitioner Acute Care
DX: I48.91 Unspecified atrial fibrillation (principal); I50.22 Chronic systolic (congestive) heart failure; E78.2 Mixed hyperlipidemia

== ENCOUNTER → 2024-07-22 | Outpatient (CLI) | payer MEDICARE | LOC: M ONCR 11:13 | PROVIDERS: ATTEND General Practice | DX: Z08 Encounter for follow-up examination after completed treatment for malignant neoplasm (principal); Z85.810 Personal history of malignant neoplasm of tongue; Z87.891 Personal history of nicotine dependence; Z92.21 Personal history of antineoplastic chemotherapy; Z92.3 Personal history of irradiation; Z88.0 Allergy status to penicillin; Z88.1 Allergy status to other antibiotic agents; Z88.8 Allergy status to other drugs, medicaments and biological substances; Z79.84 Long term (current) use of oral hypoglycemic drugs; Z79.02 Long term (current) use of antithrombotics/antiplatelets; Z79.899 Other long term (current) drug therapy | CPT/HCPCS: 31575; G0463 ==

== ENCOUNTER → 2024-09-27 | Outpatient (REF) | payer MEDICARE ==
[2024-09-27 14:37] LABS: THYROID STIMULATING HORMONE 4.812 uIU/ML (0.55-4.78)
[2024-09-27 14:39] LABS: ALBUMIN 3.9 G/DL (3.2-5.2); BILIRUBIN,TOTAL 0.5 MG/DL (0.3-1.2); CALCIUM LEVEL 9.6 MG/DL (8.3-10.6); CREATININE FOR GFR 1.61 MG/DL (0.70-1.30); GLOMERULAR FILTRATION RATE 47.5 (>49); POTASSIUM SERUM 4.6 MMOL/L (3.5-5.1)
== END ==
LOC: M LABDRWAD 13:03
PROVIDERS: ATTEND Nurse Practitioner Acute Care
DX: I25.5 Ischemic cardiomyopathy (principal); E03.9 Hypothyroidism, unspecified

== ENCOUNTER → 2024-09-27 | Outpatient (REF) | payer MEDICARE ==
[2024-09-27 14:06] LABS: HEMATOCRIT 42.8 % (42.0-52.0); HEMOGLOBIN 13.6 g/dl (13.5-17.5); MEAN CORPUSCULAR HEMOGLOBIN 31.1 pg (27.0-33.0); MEAN CORPUSCULAR HGB CONC 31.8 g/dl (32.0-36.5); MEAN CORPUSCULAR VOLUME 97.9 fl (80.0-96.0); PLATELET COUNT, AUTOMATED 179 10^3/uL (150-450); RED BLOOD COUNT 4.37 10^6/uL (4.30-6.10); WHITE BLOOD COUNT 5.5 10^3/uL (4.0-10.0)
[2024-09-27 14:41] LABS: FREE T4 1.39 NG/DL (0.89-1.76); THYROID STIMULATING HORMONE 4.678 uIU/ML (0.55-4.78)
[2024-09-27 14:45] LABS: ALBUMIN 3.9 G/DL (3.2-5.2); BILIRUBIN,TOTAL 0.5 MG/DL (0.3-1.2); CALCIUM LEVEL 9.5 MG/DL (8.3-10.6); CHOLESTEROL RISK RATIO 4.46 (<5); CREATININE FOR GFR 1.62 MG/DL (0.70-1.30); GLOMERULAR FILTRATION RATE 47.1 (>49); HDL CHOLESTEROL 35.8 MG/DL (>40); NON-HDL-C 124.2 MG/DL; POTASSIUM SERUM 4.5 MMOL/L (3.5-5.1)
[2024-09-27 15:06] LABS: HEMOGLOBIN A1c 6.2 % (4.0-6.0)
== END ==
LOC: M SFHCADAM 08:16
PROVIDERS: ATTEND Family Medicine
DX: E11.9 Type 2 diabetes mellitus without complications (principal); E03.2 Hypothyroidism due to medicaments and other exogenous substances; I25.5 Ischemic cardiomyopathy; I25.10 Atherosclerotic heart disease of native coronary artery without angina pectoris; I50.9 Heart failure, unspecified

== ENCOUNTER → 2024-10-06 | Outpatient (REF) | payer MEDICARE ==
[~2024-10-06] MED LIST changes: +LORA-1164 PO; -LORA-622 PO; +METO1TAB7 PO; -SYNT75TA; +SYNT75TA PO
[2024-10-06 18:12] LABS: CREATININE, URINE 74.4 MG/DL; MAU/CREAT RATIO 6.7 MCG/MG (0.0-30.0)
== END ==
LOC: M SFHCADAM 11:40
PROVIDERS: ATTEND Family Medicine
DX: N18.31 Chronic kidney disease, stage 3a (principal)

== ENCOUNTER → 2024-12-06 | Outpatient (CLI) | payer MEDICARE ==
[~2024-12-06] MED LIST changes: -AMIO200T49 PO; +AMIO200T54 PO; +MIDAZOLAM INJ 2 MG/2 ML VIAL IV PRN
[2024-12-06 10:08] VITALS: TEMP 97.7
[2024-12-06] MEDS: ceFAZolin SODIUM 2 GM in DEXTROSE 5% (D5W) ADV/MINI-BAG 50 ML IV ONE (10:40)
[2024-12-06] MEDS: NS (Normal Saline) 0.9% 1,000 ML IV SCH (10:41)
[2024-12-06] MEDS: LIDOCAINE 1% MDV 20 ML VIAL SC SCH (10:53)
[2024-12-06 11:10] VITALS: BP 116/72; O2SAT 96
== END ==
LOC: M IRPRO 09:56
PROVIDERS: ATTEND General Practice
DX: C01 Malignant neoplasm of base of tongue (principal)
CPT/HCPCS: 36590; J0690

== ENCOUNTER 2025-01-10 07:42 | Day surgery (SDC) | payer MEDICARE ==
[~2025-01-10] VITALS: Ht 170.2 cm; Wt 95.0 kg
[~2025-01-10 07:42] MED LIST changes: -MIDAZOLAM INJ 2 MG/2 ML VIAL IV PRN
[2025-01-10] MEDS ORDERED: LIDOCAINE 2% 100 MG/5 ML SDV (FOR ANES.) As Ordered ONE (08:55)
[2025-01-10 09:20] VITALS: BP 138/81; TEMP 97.6; O2SAT 94
== END 2025-01-10 09:25 | disposition home or self-care (01) ==
LOC: M OPP 07:42
PROVIDERS: ATTEND Surgery
DX: D12.6 Benign neoplasm of colon, unspecified (principal); K57.30 Diverticulosis of large intestine without perforation or abscess without bleeding; Z86.0100 Personal history of colon polyps, unspecified; I48.91 Unspecified atrial fibrillation; Z95.5 Presence of coronary angioplasty implant and graft; G47.30 Sleep apnea, unspecified; Z86.73 Personal history of transient ischemic attack (TIA), and cerebral infarction without residual deficits; Z88.0 Allergy status to penicillin; Z88.8 Allergy status to other drugs, medicaments and biological substances; Z79.84 Long term (current) use of oral hypoglycemic drugs; Z79.02 Long term (current) use of antithrombotics/antiplatelets; Z79.899 Other long term (current) drug therapy; J45.909 Unspecified asthma, uncomplicated; Z95.810 Presence of automatic (implantable) cardiac defibrillator

== ENCOUNTER → 2025-01-21 | Outpatient (CLI) | payer MEDICARE | LOC: M RAD 09:55 | PROVIDERS: ATTEND Internal Medicine Hematology & Oncology | DX: Z85.810 Personal history of malignant neoplasm of tongue (principal); Z95.0 Presence of cardiac pacemaker; R22.1 Localized swelling, mass and lump, neck ==

== ENCOUNTER → 2025-01-28 | Outpatient (CLI) | payer MEDICARE | LOC: M ONCR 08:44 | PROVIDERS: ATTEND General Practice | DX: C01 Malignant neoplasm of base of tongue (principal); K03.81 Cracked tooth; Z87.891 Personal history of nicotine dependence; Z92.21 Personal history of antineoplastic chemotherapy; Z92.3 Personal history of irradiation; Z88.0 Allergy status to penicillin; Z88.1 Allergy status to other antibiotic agents; Z88.8 Allergy status to other drugs, medicaments and biological substances; Z79.02 Long term (current) use of antithrombotics/antiplatelets; Z79.899 Other long term (current) drug therapy | CPT/HCPCS: 31575; G0463 ==

== ENCOUNTER → 2025-02-21 | Outpatient (CLI) | payer MEDICARE ==
[~2025-02-21] VITALS: Ht 170.2 cm; Wt 96.0 kg
[~2025-02-21] MED LIST changes: +DULO30CA9 PO
[2025-02-21 14:05] VITALS: BP 138/74; O2SAT 95
== END ==
LOC: M PAL 13:38
PROVIDERS: ATTEND Physician Assistant
DX: Z51.5 Encounter for palliative care (principal); C02.9 Malignant neoplasm of tongue, unspecified; Z92.21 Personal history of antineoplastic chemotherapy; Z79.891 Long term (current) use of opiate analgesic; Z88.0 Allergy status to penicillin; Z88.1 Allergy status to other antibiotic agents; Z79.899 Other long term (current) drug therapy; Z79.02 Long term (current) use of antithrombotics/antiplatelets

== ENCOUNTER → 2025-03-28 | Outpatient (CLI) | payer MEDICARE ==
[~2025-03-28] VITALS: Ht 170.2 cm; Wt 96.9 kg
[2025-03-28 10:50] VITALS: BP 134/72; O2SAT 96
== END ==
LOC: M PAL 10:28
PROVIDERS: ATTEND Physician Assistant
DX: Z51.5 Encounter for palliative care (principal); C02.9 Malignant neoplasm of tongue, unspecified; R52 Pain, unspecified; G62.9 Polyneuropathy, unspecified; Z92.21 Personal history of antineoplastic chemotherapy; Z92.3 Personal history of irradiation; Z79.02 Long term (current) use of antithrombotics/antiplatelets; Z79.84 Long term (current) use of oral hypoglycemic drugs; Z79.899 Other long term (current) drug therapy; Z88.0 Allergy status to penicillin; Z88.1 Allergy status to other antibiotic agents; Z88.8 Allergy status to other drugs, medicaments and biological substances

== ENCOUNTER → 2025-03-30 | Outpatient (CLI) | payer MEDICARE ==
[~2025-03-30] MED LIST changes: +ISOVUE-370 76% 100 ML VIAL As Ordered ONE
== END ==
LOC: M RAD 10:01
PROVIDERS: ATTEND Internal Medicine Medical Oncology
DX: C01 Malignant neoplasm of base of tongue (principal)
CPT/HCPCS: 70491; Q9967

== ENCOUNTER → 2025-04-06 | Outpatient (REF) | payer MEDICARE ==
[~2025-04-06] MED LIST changes: -ISOVUE-370 76% 100 ML VIAL As Ordered ONE
[2025-04-06 14:06] LABS: CALCIUM LEVEL 9.0 MG/DL (8.3-10.6); CARBON DIOXIDE LEVEL 31.0 MMOL/L (20-31); CHLORIDE LEVEL 98.0 MMOL/L (98-107); CREATININE FOR GFR 1.67 MG/DL (0.70-1.30); GLOMERULAR FILTRATION RATE 45.1 (>49); POTASSIUM SERUM 4.4 MMOL/L (3.5-5.1); SODIUM LEVEL 139.0 MMOL/L (136-145)
[2025-04-06 14:32] LABS: ESTIMATED AVERAGE GLUCOSE 183.0 MG/DL (60-110)
== END ==
LOC: M SFHCADAM 08:43
PROVIDERS: ATTEND Family Medicine
DX: E11.22 Type 2 diabetes mellitus with diabetic chronic kidney disease (principal)

== ENCOUNTER → 2025-04-29 | Outpatient (CLI) | payer MEDICARE | LOC: M ONCR 09:06 | PROVIDERS: ATTEND General Practice | DX: Z08 Encounter for follow-up examination after completed treatment for malignant neoplasm (principal); Z85.810 Personal history of malignant neoplasm of tongue; Z87.891 Personal history of nicotine dependence; Z92.21 Personal history of antineoplastic chemotherapy; Z92.3 Personal history of irradiation; Z79.02 Long term (current) use of antithrombotics/antiplatelets; Z79.84 Long term (current) use of oral hypoglycemic drugs; Z79.85 Long-term (current) use of injectable non-insulin antidiabetic drugs; Z79.899 Other long term (current) drug therapy; Z88.0 Allergy status to penicillin; Z88.1 Allergy status to other antibiotic agents; Z88.8 Allergy status to other drugs, medicaments and biological substances | CPT/HCPCS: 31575; G0463 ==